=== PATIENT | female | born 1985 | race Caucasian/White ===

== ENCOUNTER 2018-10-17 08:53 | Emergency (ER) | payer OTHER, SELFPAY ==
[2018-10-17 08:59] VITALS: BP 140/78; PULSE 71; RESP 20; TEMP 36.8; O2SAT 100
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
== END 2018-10-17 09:40 | disposition home or self-care (01) ==
LOC: ED 09:47
PROVIDERS: Emergency Provider Emergency Medicine; PCP Family Medicine
DX: S13.4XXA Sprain of ligaments of cervical spine, initial encounter (principal); S06.0X0A Concussion without loss of consciousness, initial encounter; M54.6 Pain in thoracic spine; R51 Headache; R42 Dizziness and giddiness; V43.52XA Car driver injured in collision with other type car in traffic accident, initial encounter
CPT/HCPCS: 81025; 99282

== ENCOUNTER → 2018-10-20 12:40 | Outpatient (CLI) | payer OTHER, SELFPAY ==
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
--- NOTE | 2018-10-20 | DI.RAD.S_ITS ---
PROCEDURE: XR LUMBAR SPINE 2-3V INDICATIONS: BACK PAIN TECHNIQUE: 2 views of the lumbar spine were acquired. COMPARISON: None. FINDINGS: Bones: 5 [id number] vertebrae are present. There is mildly dextroscoliotic bony alignment. No vertebral body compression fractures. No suspicious bony lesions. Soft tissues: Overlying bowel gas pattern is normal. No suspicious soft tissue calcifications. IMPRESSION: No trauma. Mild dextroscoliosis. A definite source of acute onset back pain is not seen. Dictated by: Theo Delacruz M.D. on 10/20/2018 at 14:03 Approved by: Theo Delacruz M.D. on 10/20/2018 at 14:03
== END ==
PROVIDERS: PCP Family Medicine
DX: M54.9 Dorsalgia, unspecified (principal); M51.34 Other intervertebral disc degeneration, thoracic region; M41.9 Scoliosis, unspecified
CPT/HCPCS: 72072; 72100

== ENCOUNTER → 2018-11-05 16:40 | Outpatient (CLI) | payer OTHER, SELFPAY ==
--- NOTE | 2018-11-05 | DI.RAD.S_ITS ---
PROCEDURE: XR LUMBAR SPINE 2-3V INDICATIONS: LOW BACK PAIN TECHNIQUE: 3 views of the lumbar spine were acquired. COMPARISON: [facility], CR, XR LUMBAR SPINE 2-3V, 10/20/2018, 12:58. FINDINGS: Bones: No fracture or focal osseous destruction. Minimal dextrocurvature centered at L3. Multilevel degenerative endplate sclerosis and spurring. Diffuse facet arthropathy. Mild narrowing of the L3-L4, L4-L5 and L5-S1 disc space. There is also diffuse mild lower thoracic disc space narrowing. Soft tissues: Overlying bowel gas pattern is normal. No suspicious soft tissue calcifications. IMPRESSION: No interval change since 10/20/18. No fracture Diffuse lower thoracic and lumbar spondylosis, and facet arthropathy. Mild dextrocurvature Dictated by: Antonio Richard M.D. on 11/06/2018 at 11:13 Approved by: Antonio Richard M.D. on 11/06/2018 at 11:15
== END ==
PROVIDERS: PCP Family Medicine; Visit Provider Physician Assistant Medical
DX: M54.5 Low back pain (principal); M47.816 Spondylosis without myelopathy or radiculopathy, lumbar region; M47.814 Spondylosis without myelopathy or radiculopathy, thoracic region; R42 Dizziness and giddiness; R51 Headache; S06.0X0D Concussion without loss of consciousness, subsequent encounter
CPT/HCPCS: 72100

== ENCOUNTER → 2018-11-07 12:14 | Outpatient (CLI) | payer OTHER, SELFPAY ==
--- NOTE | 2018-11-07 12:20 | DI.CT.S_ITS ---
PROCEDURE: CT HEAD/BRAIN WO CON INDICATIONS: Dizziness and giddiness TECHNIQUE: Noncontrast 4.5 mm thick angled axial sections acquired from the foramen magnum to the vertex, with coronal and sagittal reformats. For radiation dose reduction, the following was used: automated exposure control, adjustment of mA and/or kV according to patient size. COMPARISON: None. FINDINGS: Image quality: Excellent. CSF spaces: Basal cisterns are patent. No extra-axial fluid collections. Ventricles are normal in size and shape. Brain: No midline shift. No intracranial masses or hemorrhage. Tucker-white matter interface is normal. Skull and face: Calvarium and visualized facial bones are intact, without suspicious lesions. Sinuses: Visualized sinuses and mastoids are clear. IMPRESSION: Negative exam as above Dictated by: Antonio Richard M.D. on 11/07/2018 at 12:49 Approved by: Antonio Richard M.D. on 11/07/2018 at 13:03
== END ==
PROVIDERS: PCP Physician Assistant Medical; Visit Provider Physician Assistant Medical
DX: R42 Dizziness and giddiness (principal)
CPT/HCPCS: 70450

== ENCOUNTER → 2019-01-09 07:16 | Outpatient (CLI) | payer OTHER, SELFPAY ==
--- NOTE | 2019-01-09 | DI.MRI.S_ITS ---
PROCEDURE: MR THORACIC SPINE WO CON INDICATIONS: LOW BACK PAIN/NECK PAIN TECHNIQUE: Noncontrast sagittal T1 spine echo and T2 fast spin echo, sagittal STIR, axial T1 and T2 fast spin echo through the thoracic spine. COMPARISON: None. FINDINGS: Image quality: Excellent. Alignment and Curvature: There is normal bony alignment. Bones: Benign com intraosseous hemangiomas noted in the T7, T8, T11, T12 and L1 vertebral bodies. Small Schmorl's nodes noted in the inferior endplate of the T7 vertebral body, inferior endplate of the T8 vertebral body, inferior plate of the T9 vertebral body and inferior endplate of the T12 vertebral body. No acute vertebral body compression fractures. Spinal Cord: Visualized spinal cord is normal in size and signal. Paraspinous Soft Tissues: No paravertebral masses. Miscellaneous: Mild T6-T7, T7-T8, and T8-9 degenerative disc disease. No central stenosis. No neural foraminal narrowing. No neural impingement. IMPRESSION: 1. Mild multilevel degenerative disc disease. 2. No central stenosis. 3. No neural foraminal narrowing 4. No neural impingement. Dictated by: Grace Guillen MD, PhD on 01/09/2019 at 9:15 Approved by: Grace Guillen MD, PhD on 01/09/2019 at 9:22
--- NOTE | 2019-01-09 | DI.MRI.S_ITS ---
PROCEDURE: MR CERVICAL SPINE WO CON INDICATIONS: LOW BACK PAIN/NECK PAIN TECHNIQUE: Noncontrast sagittal T1 spin echo and T2 fast spin echo, sagittal STIR, foraminal oblique sagittal T2 fast spin echo, and axial gradient echo or T2 fast spin echo through the cervical spine. COMPARISON: None. FINDINGS: Image quality: Excellent. Alignment and Curvature: There is normal bony alignment. Bone Marrow: Marrow demonstrates normal overall signal. Spinal Cord: Visualized spinal cord has normal size and signal. No cerebellar tonsillar herniation. Paraspinous Soft Tissues: No paravertebral masses. Prevertebral soft tissues are normal in thickness. C2-C3: Normal appearance. C3-C4: Normal appearance. C4-C5: Slight loss of disc signal. Minimal, diffuse disc bulge. No central stenosis. No neural foraminal narrowing. No neural impingement. C5-C6: Slight loss of disc signal. Minimal, diffuse disc bulge. No central stenosis. No neural foraminal narrowing. No neural impingement. C6-C7: Normal appearance. C7-T1: Normal appearance. IMPRESSION: 1. Mild C4-C5 and C5-C6 degenerative disc disease. 2. No central stenosis. 3. No neural foraminal narrowing. 4. No neural impingement. Dictated by: Grace Guillen MD, PhD on 01/09/2019 at 10:41 Approved by: Grace Guillen MD, PhD on 01/09/2019 at 10:44
--- NOTE | 2019-01-09 | DI.MRI.S_ITS ---
PROCEDURE: MR LUMBAR SPINE WO CON INDICATIONS: LOW BACK PAIN/NECK PAIN TECHNIQUE: Noncontrast sagittal T1 spin echo and T2 fast echo, sagittal STIR, axial T1 and T2 fast spin echo through the lumbar spine. In cases with scoliosis, additional coronal T2 fast spin echo may be performed. COMPARISON: [facility], CR, XR LUMBAR SPINE 2-3V, 11/05/2018, 16:53. FINDINGS: Image quality: Excellent. Alignment and Curvature: There are 5 lumbar-type vertebral bodies by plain film. A lamina is normal. Bone Marrow: Marrow is of normal overall signal. No acute vertebral body compression fractures. Spinal Cord: Conus medullaris terminates at the lower L1 level. Visualized cord demonstrates normal signal and size. Paraspinous Soft Tissues: No paravertebral masses. L1-L2: Mild diffuse disc bulge. Mild facet and ligament flavum hypertrophy. Mild canal stenosis. No foraminal stenosis. L2-L3: Mild disc desiccation. Minimal diffuse disc bulge. Mild facet and ligamentum flavum hypertrophy. Mild epidural lipomatosis. Minimal canal stenosis. No foraminal stenosis. L3-L4: Mild disc height loss and desiccation. Mild diffuse disc bulge with superimposed small central protrusion and annular tear. Mild facet and ligament flavum hypertrophy. Mild canal stenosis. Mild bilateral foraminal stenosis. L4-L5: Mild disc height loss and desiccation. Mild diffuse disc bulge with superimposed small central protrusion and annular tear. Mild facet and ligament flavum hypertrophy. Mild canal stenosis. No foraminal stenosis. L5-S1: Mild facet hypertrophy bilaterally. No significant canal, nor foraminal stenosis. IMPRESSION: 1. Multilevel degenerative disc and facet disease, as well as ligamentum flavum hypertrophy and epidural lipomatosis. 2. Mild multilevel canal and foraminal stenoses. No neural impingement. Dictated by: Barbara Whitaker M.D. on 01/09/2019 at 15:54 Approved by: Barbara Whitaker M.D. on 01/09/2019 at 16:00
== END ==
PROVIDERS: PCP Physician Assistant Medical; Visit Provider Physician Assistant Medical
DX: M54.5 Low back pain (principal); M50.321 Other cervical disc degeneration at C4-C5 level; M50.322 Other cervical disc degeneration at C5-C6 level; M46.06 Spinal enthesopathy, lumbar region; M48.061 Spinal stenosis, lumbar region without neurogenic claudication; M48.07 Spinal stenosis, lumbosacral region; D17.79 Benign lipomatous neoplasm of other sites; M51.36 Other intervertebral disc degeneration, lumbar region; M51.34 Other intervertebral disc degeneration, thoracic region
CPT/HCPCS: 72141; 72146; 72148

== ENCOUNTER → 2019-09-26 12:25 | Outpatient (CLI) | payer OTHER, SELFPAY ==
[2019-09-26 13:45] LABS: Influenza A - CEPHEID Flu A NEGATIVE (NEGATIVE); Influenza B - CEPHEID Flu B NEGATIVE (NEGATIVE)
[2019-10-01 08:35] LABS: COVID19 Sendout Not Detected (Not Detected)
== END ==
PROVIDERS: PCP Physician Assistant Medical; Visit Provider Nurse Practitioner
DX: R68.89 Other general symptoms and signs (principal)
CPT/HCPCS: 87502; 87635

== ENCOUNTER → 2019-10-06 10:51 | Outpatient (CLI) | payer OTHER, SELFPAY ==
--- NOTE | 2019-10-06 10:54 | DI.RAD.S_ITS ---
PROCEDURE: XR CHEST 2V INDICATIONS: cough post doxy, cv/flu test negative, r/o pneumonia TECHNIQUE: 2 views of the chest were acquired. COMPARISON: None. FINDINGS: Surgical changes and devices: None. Lungs and pleura: There is mild patchy left perihilar opacity, technically indeterminate. Elsewhere no acute consolidation No pleural effusions or pneumothorax. Mediastinum: Mediastinal contours are normal. Heart size is normal. Bones and chest wall: No suspicious bony abnormalities. Soft tissues appear unremarkable. IMPRESSION: Questionable patchy left perihilar opacity, technically non-specific. This could reflect vascular shadows, aspiration/atelectasis versus early pneumonia. If there is persistent clinical diagnostic uncertainty, continued surveillance with short interval chest radiographs after treatment is recommended. Dictated by: Anotnio Richard M.D. on 10/06/2019 at 11:06 Approved by: Antonio Richard M.D. on 10/06/2019 at 11:11
== END ==
PROVIDERS: PCP Physician Assistant Medical; Referring Provider Physician Assistant; Visit Provider Physician Assistant
DX: J06.9 Acute upper respiratory infection, unspecified (principal); R05 Cough
CPT/HCPCS: 71046

== ENCOUNTER → 2021-01-26 09:40 | Outpatient (CLI) | payer OTHER, SELFPAY ==
[2021-01-26 10:45] LABS: Add Manual Diff / Slide Review NO; Basophils Absolute Auto 0 /uL (0-100); Basophils Percent Auto 0.7 % (0-2); Eosinophils Absolute Auto 100 /uL (0-450); Eosinophils Percent Auto 1.4 % (2-4); Hematocrit 41.1 % (36-46); Hemoglobin 13.9 g/dL (12.0-16.0); Lymphocytes Absolute Auto 1800 /uL (1100-4500); Lymphocytes Percent Auto 28.1 % (25-40); Mean Corpuscular HGB Conc 33.9 % (30-36); Mean Corpuscular Hemoglobin 31.7 PG (26-34); Mean Corpuscular Volume 93.4 fL (80-100); Monocytes Absolute Auto 500 /uL (0-900); Monocytes Percent Auto 8.4 % (3-14); Neutrophils Absolute Auto 3900 /uL (1500-7000); Neutrophils Percent Auto 61.4 % (50-75); Platelet Count 250 X10^3/uL (150-400); Red Cell Distribution Width 12.8 % (11.6-14.8); White Blood Cell Count 6.4 X10^3/uL (4.5-11.0)
[2021-01-26 10:54] LABS: Alanine Aminotransferase 20 IU/L (<35); Albumin 4.8 g/dL (3.5-5.0); Albumin Globulin Ratio 1.6 (1.0-2.8); Alkaline Phosphatase 31 U/L (38-126); Aspartate Aminotransferase 25 IU/L (14-36); BUN Creatinine Ratio 27.8 (6-22); Bilirubin Total 0.4 mg/dL (0.2-1.3); Blood Urea Nitrogen 20 mg/dL (7-17); Calcium 9.9 mg/dL (8.4-10.2); Carbon Dioxide 28 mmol/L (22-32); Chloride 105 mmol/L (98-107); Cholesterol 191 mg/dL (140-199); Estimated Glomerular Filt Rate > 60.0 mL/min (>60); Glucose 92 mg/dL (70-100); HDL Cholesterol 67 mg/dL (40-60); HEMOLYSIS < 15 (0-50); LDL Cholesterol Calculated 109 mg/dL (<100); Potassium 4.9 mmol/L (3.4-5.1); Sodium 140 mmol/L (137-145); Total Protein 7.8 g/dL (6.3-8.2); Triglycerides 75 mg/dL (35-150)
[2021-01-26 11:43] LABS: TSH w/ Reflex to FT4 1.66 uIU/mL (0.47-4.68)
== END ==
PROVIDERS: PCP Family Medicine; Referring Provider Family Medicine; Visit Provider Family Medicine
DX: D64.9 Anemia, unspecified (principal); Z13.220 Encounter for screening for lipoid disorders; Z13.29 Encounter for screening for other suspected endocrine disorder
CPT/HCPCS: 36415; 80053; 80061; 84443; 85025

== ENCOUNTER → 2021-02-08 10:38 | Outpatient (CLI) | payer OTHER, MEDICAID, SELFPAY ==
--- NOTE | 2021-02-08 10:44 | DI.US.S_ITS ---
PROCEDURE: US ABDOMEN LIMITED INDICATIONS: UMBILICAL HERNIA TECHNIQUE: Real-time focused scanning was performed of the abdomen, with image documentation. COMPARISON: None. FINDINGS: No hernia found. IMPRESSION: No hernia found. Dictated by: Theo Delacruz M.D. on 02/08/2021 at 11:51 Approved by: Theo Delacruz M.D. on 02/08/2021 at 11:51
== END ==
PROVIDERS: PCP Family Medicine; Referring Provider Family Medicine; Visit Provider Family Medicine
DX: K42.9 Umbilical hernia without obstruction or gangrene (principal)
CPT/HCPCS: 76705

== ENCOUNTER → 2021-02-14 13:00 | Outpatient (CLI) | payer OTHER, MEDICAID, SELFPAY ==
--- NOTE | 2021-02-14 13:00 | DI.US.S_ITS ---
PROCEDURE: US PELVIC COMPLETE INDICATIONS: Ovarian cysts, pelvic pain TECHNIQUE: Real-time scanning was performed of the pelvic organs, with image documentation. Additional endovaginal scanning was necessary due to incomplete visualization of the adnexal and endometrial structures by transabdominal scanning. COMPARISON: [facility], US, PELVIC COMPLETE, 08/05/2017, 16:28. FINDINGS: Uterus: Uterus is normal in size at 10.2 x 5.4 x 5.3 cm. The endometrium measures 14 mm in combined thickness. There is a left anterior intramural fibroid seen that measures up to 3.3 cm. Ovaries: The right ovary is not seen. The left ovary measures 5.4 x 3.7 x 5 cm and demonstrates a complex hypoechoic cyst that measures 3.4 x 2.2 x 2.5 cm. There is also a 2.9 cm simple cyst seen within the left ovary, which is considered to be within physiologic limits. No adnexal masses are seen on either side. Other: No pathologic free abdominal or pelvic fluid. IMPRESSION: There is a 3.4 cm complex cyst seen within the left ovary, which most likely relates to a hemorrhagic cyst in a patient of this age. If it would be clinically appropriate, a followup pelvic ultrasound could be considered in 6 weeks to assure resolution/ improvement. 3.3 cm anterior fibroid seen. Dictated by: Yoan Beltre M.D. on 02/14/2021 at 12:54 Approved by: Yoan Beltre M.D. on 02/14/2021 at 12:56
== END ==
PROVIDERS: PCP Family Medicine; Referring Provider Obstetrics & Gynecology; Visit Provider Obstetrics & Gynecology
DX: R10.2 Pelvic and perineal pain (principal); N83.292 Other ovarian cyst, left side; D25.1 Intramural leiomyoma of uterus
CPT/HCPCS: 76830; 76856

== ENCOUNTER → 2021-03-16 11:26 | Outpatient (CLI) | payer OTHER, MEDICAID, SELFPAY ==
[2021-03-16 13:09] LABS: COVID19 -Nasal RAPID Negative (Negative)
== END ==
PROVIDERS: PCP Family Medicine; Visit Provider Obstetrics & Gynecology
DX: Z01.812 Encounter for preprocedural laboratory examination (principal); Z20.822 Contact with and (suspected) exposure to COVID-19
CPT/HCPCS: 87635

== ENCOUNTER 2021-03-17 07:51 | Day surgery (SDC) | payer OTHER, MEDICAID, SELFPAY ==
[2021-03-16 10:12] VITALS: BMI 33.3
[2021-03-17] VITALS (10 sets, daily range): BP systolic 101–125; BP diastolic 61–79; PULSE 57–80; RESP 12–19; TEMP 35.9–36.9; O2SAT 87–100; BMI 33.3
--- NOTE | 2021-03-17 | PATH_ITS ---
[facility] Accession Number: [id number] . 01 Material submitted: . peritoneum - PERITONEAL BIOPSY . 01 Clinical history: . A: ENDOMETRIOSIS . 02 Diagnosis: Peritoneum, Biopsy: Fibroadipose tissue with small focus of CD10 immunoreactive stroma, consistent with endometriosis. No evidence of malignancy. [facility] 03/22/2021 1215 Local . 02 Electronically signed: . Sai Aponte MD, PhD, Pathologist NPI- [id number] . 01 Gross description: . The specimen is received in formalin, labeled peritoneal biopsy endometriosis, and consists of a 0.5 x 0.4 x 0.3 cm amato fragment of soft tissue which is entirely submitted in cassette A1. ([id number]) /[facility] 03/18/2021 1542 Local . 02 Microscopic: . Sections are of fibroadipose tissue with a small focus of dense stroma. To further evaluate the focus of interest, a limited panel of immunohistochemical stains is performed (each with an appropriately positive control). The focus of interest shows strong diffuse CD10 immunoreactivity. There is no evidence of PAX8 immunoreactivity; that said, there is no definitive epithelial component present for evaluation. The overall morphology and immunoprofile are consistent with the clinical impression of endometriosis. . * This test was developed and its performance characteristics determined by [facility]. It has not been cleared or approved by the U.S. Food and Drug Administration. The FDA has determined that such clearance or approval is not necessary. This test is used for clinical purposes. It should not be regarded as investigational or for research. . 02 Pathologist provided ICD-10: R10.31, N80.9 . 02 CPT . 544865, B97497, E21119 Performed at: 01 [facility] [address] [place] [address], [place], [place] [id number] MD Polo Salcido MD Phone: [phone] Performed at: 02 [facility] [id number] [place] [id number] MD Caryn Tripp MD Phone: [phone]
--- NOTE | 2021-03-17 07:51 | PM.GYNHP.1 ---
History of Present Illness History of Present Illness Reason for admission: other (Left ovarian mass) Narrative: Rica is a 35 yo LMP 02/24/2021 presented for evaluation due to a history of right lower quadrant pain since September 2020 and the finding of a complex left ovarian cyst. Comparing US results from [facility] from 10/2020, with ultrasound results from diagnostic imaging 02/14/2021, it shows that the left ovary has enlarged slightly to 5.4 x 3.7 x 5 cm and that there is a complex hypoechoic cyst that measures 3.4 x 2.2 x 2.5. the patient gives a history in the past of being told that she has a dermoid in the left ovary but never has had surgery for same.? The patient had her right ovary removed in 2009 but no records are? available for review.? That said, the patient is very concerned about the possibility of losing her remaining left ovary and if she has lesion within that ovary that may grow over time and consequently put her left ovary in jeopardy insofar as viability, she wishes to proceed sooner rather than later with corrective surgery.? ? After consideration of all options, the patient has decided to proceed with left ovarian cystectomy which is scheduled for 03/17/2021.? She presents today for herscheduled surgery. [facility] Medical History Complex cyst of left ovary Fibromyalgia RLQ abdominal pain Surgical History Hx of abdominoplasty Hx of breast augmentation Hx of removal of ovary Social History Smoking Status: Former smoker alcohol intake: current Meds Home Medications and Allergies Home Medications Medication Instructions Recorded Confirmed Type cyclobenzaprine 5 mg tablet 5 mg PO BEDTIME PRN #30 tab 01/26/21 03/16/21 Rx meloxicam 7.5 mg tablet 7.5 mg PO DAILY 01/26/21 03/16/21 History ibuprofen 600 mg tablet 600 mg PO Q6HP PRN 03/16/21 03/16/21 History Allergies Allergy/AdvReac Type Severity Reaction Status Date / Time No Known Drug Allergies Allergy Verified 03/16/21 11:38 Review of Systems Review of Systems Narrative: Problem-specific ROS positives are included in HPI Exam Const General: cooperative Nutritional Appearance: overweight Orientation: alert and oriented x3 HENMT Head: normal to inspection Ears: hearing grossly normal bilaterally Nose: external nose normal Face and sinus: face symmetric Eyes Conjunctivae: conjunctivae normal Sclera: sclerae normal EOM: EOM intact bilaterally Neck Neck: full ROM and No lymphadenopathy Thyroid: thyroid normal Resp Effort & Inspection: normal respiratory effort and able to speak in complete sentences Auscultation: clear to auscultation bilaterally Cardio Rate: regular rate Rhythm: regular rhythm Heart Sounds: S1 normal and S2 normal GI Inspection: normal to inspection and scar ( Pfannenstiel, abdominoplasty) Palpation: soft, hepatomegaly and No mass External Female Exam: normal external appearance Speculum Exam - Vagina: normal appearance of the vagina and normal vaginal discharge Speculum Exam - Cervix: normal appearance of the cervix and cervical os open Bimanual Exam- Vagina & Uterus: uterine size normal and not fixed (Anterior) Bimanual Exam- Adnexa, other: tender on the left and apex supported OB/External & Speculum: cervical os open Extrem General: normal to inspection and No calf tenderness Psych Appearance: grossly normal Mental Status: mental status grossly normal Speech and Movement: speech and movement normal Mood: congruent mood Affect: normal affect Attitude: cooperative Thought Process: normal Thought Content: normal Judgment: judgment good Assessment & Plan Assessment and plan (1) Complex cyst of left ovary: Status: Acute Assessment & Plan narrative: Patient counseled regarding options, alternatives, risks, and potential benefits associated with laparoscopic ovarian cystectomy.? Patient is also aware that despite our best efforts removal of the left ovary may be necessary to control hemorrhage or if unexpected findings are noted.? She understands that this would result in her been experiencing surgical menopause for which hormone replacement? therapy would be indicated.? Due to the known intra-abdominal scar tissue which the patient has following her 3 sections, she also understands that an open laparotomy may be necessary to effectively remove the ovarian cyst.? With full understanding of the above a written consent was completed, executed, and signed 03/16/2021.. COVID-19 COVID-19 status: Negative Result date/Date tested (Pos, Neg/Pending): 03/16/21 Time Spent With Patient Time with patient: less than 30 minutes Critical Care time: I spent a total of [] minutes of critical care time on this patient's care today; this time is exclusive of procedural time.
[2021-03-17] MEDS: LACTATED RINGERS 1,000 ML 42 ML IV ×2 (08:13→10:01)
[2021-03-17] MEDS: SCOPOLAMINE 1 PATCH TOP (08:56)
--- NOTE | 2021-03-17 09:23 | PM.PREOP ---
Pre-operative Note COVID-19 COVID-19 status: Negative Result date/Date tested (Pos, Neg/Pending): 03/16/21 Interval Note History & Physical reviewed/Exam performed by Physician: Yes Changes to H&P: No
[2021-03-17] MEDS: ACETAMINOPHEN IV 1,000 MG/100 ML VIAL 400 MG IV (09:30)
--- NOTE | 2021-03-17 09:49 | SUR.OPER ---
Lithotomy on padded OR bed, head on pillow, bilateral arms padded with gel pads and tucked at sides. Legs secured in padded yellow fins stirrups.
[2021-03-17] MEDS: BUPIVACAINE 0.5% (PF) VIAL 30 ML INJ (09:59)
--- NOTE | 2021-03-17 11:00 | PM.OP.1 ---
Operative Date/Time/Diagnoses Date of procedure: 03/17/21 Time of procedure: 09:45 Pre-op diagnosis: Pelvic pain, left ovarian mass Post-op diagnosis: other (Left ovarian endometrioma, pelvic peritoneal endometriosis, pelvic adhesions) Procedure & Clinicians Procedure: Laparoscopic left ovarian cystectomy Lysis of adhesion Excision of pelvic peritoneal endometriosis Same procedure as scheduled: Yes Indications: Rica is a 35 yo LMP 02/24/2021 presented for evaluation due to a history of right lower quadrant pain since September 2020 and the finding of a complex left ovarian cyst. Comparing US results from [facility] from 10/2020, with ultrasound results from diagnostic imaging 02/14/2021, it shows that the left ovary has enlarged slightly to 5.4 x 3.7 x 5 cm and that there is a complex hypoechoic cyst that measures 3.4 x 2.2 x 2.5. the patient gives a history in the past of being told that she has a dermoid in the left ovary but never has had surgery for same.? The patient had her right ovary removed in 2009 but no records are? available for review.? That said, the patient is very concerned about the possibility of losing her remaining left ovary and if she has lesion within that ovary that may grow over time and consequently put her left ovary in jeopardy insofar as viability, she wishes to proceed sooner rather than later with corrective surgery.? ? After consideration of all options, the patient has decided to proceed with left ovarian cystectomy which is scheduled for 03/17/2021.? She presents today for preop evaluation, assessment, and consent. Surgeon: Rd Rubio Electrical Control Assembler: Grecia Wynne Click Yes if Unassisted: No Anesthesia Type: General Operative Notes Findings: The pelvis and upper abdomen were visualized thoroughly via laparoscopy. the anterior cul-de-sac demonstrates changes consistent with prior sections. In addition there are a number of superficial peritoneal implants of endometriosis in the anterior cul-de-sac. Similarly, the posterior cul-de-sac peritoneum had diffuse implants of superficial peritoneal endometriosis. The right adnexa is surgically absent. There is some scarring at the site of the LSO but no obvious cause of the right lower quadrant pain of which she complains. The appendix was visualized and appears normal as does the upper abdomen. The uterus is upper limits of normal size with a 3 cm subserosal myoma arising from the right anterolateral aspect of the fundus and extending to the pelvic sidewall. The left ovary has superficial endometriosis on the surface which was fulgurated and a 2.5 cm endometrioma within the substance of the ovary which was opened, drained, and the base of the endometrioma was fulgurated in its entirety. There was also a deep implant lateral and cephalad to the infundibulopelvic ligament on the left and that implant was excised and submitted for pathologic evaluation. The upper abdomen was unremarkable to laparoscopic visualization. Closure Type: primary Specimen(s): other ( Peritoneal biopsy, left pelvic sidewall) Estimated Blood Loss (mL): 5 Blood products transfused: none Procedure in detail: With the patient under satisfactory general endotracheal anesthesia in the modified dorsolithotomy position, the pelvis vagina and abdomen were prepped and draped in the usual fashion for laparoscopy. A pre-surgical safety time-out was then taken per [facility] Main OR protocol. The umbilicus was infiltrated with 0.5% Marcaine and a 3 cm vertical umbilical incision was made. The subcutaneous tissues were and the anterior fascia grasped with 2 Heidi clamps. The anterior fascia was then incised transversely with Metzenbaum scissors and the ends of the incision were secured with 0 Vicryl interrupted stitch. Dissection was then carried down through the rectus abdomini to the anterior peritoneum which was entered sharply without incident. The Pereira cannula was then placed and retaining balloon inflated. The stay sutures on the fascia were then used to secure the Pereira cannula in place. The abdomen was insufflated with carbon dioxide and visualized with the 5 mm scope. Two additional 5 mm ports were then placed in the right hand left mid quadrants after infiltration of the skin and subcutaneous tissues with 0.5% Marcaine. The pelvis and abdomen were visualized with the findings as noted above. The single pelvic adhesion from the omentum to the anterior abdominal wall was coagulated and divided with monopolar wero. At that point the pelvis was more fully visualized and the left ovary was mobilized so as to be fully visualized. There was some surface endometriosis which was coagulated using monopolar current and to functional cysts were incised and drained yielding clear fluid. On the under surface of the ovary however there was approximately 2-3 cm endometrioma within the substance of the ovary which was incised and the overlying invasive endometriosis of the capsule was excised so as to expose the cavity of the endometrioma. Attempts to remove the capsule of the endometrioma were were unsuccessful and therefore monopolar current was used to fulgurate the entire capsule of the endometrioma. The cavity of the endometrioma was then lavaged and inspected for bleeding or residual endometriosis and there was none evident. The area of endometriosis lateral to the infundibulopelvic ligament on the left was excised by grasping the implant, elevating it, and using monopolar wero excising it at the base. It was submitted as a separate pathologic specimen. The pelvis was then inspected more thoroughly and completely irrigated. Aside from the diffuse superficial endometriotic implants and the fibroid arising on the right lateral aspect of the uterus there were no other abnormalities noted. At that point the pneumoperitoneum was vented and the ports removed. The fascia of the umbilical incision was then closed with 0 Vicryl interrupted stitch x4 and the skin edges were brought together with 4-0 Monocryl using inverted interrupted stitches. The 2 5 mm ports on the left and the right were then closed with 4-0 Monocryl subcuticular stitches and skin glue was applied to all incisions. A compression dressing was then applied to the umbilical incision and sterile dressings were applied to the other 2 port incisions. The patient was then transferred to the PACU for a period of recovery after having tolerated procedure well. Complications: none Post-operative Condition: stable Disposition: PACU Plan for aftercare: Routine postop care with follow-up appointment scheduled for 2 weeks. Electronic prescriptions for Dilaudid 2 mg # 20 and Zofran 4 mg #20 were sent to her pharmacy.
[2021-03-17] MEDS: HYDROMORPHONE 2 MG INJ IV ×2 (11:17→11:25)
[2021-03-17] MEDS: hydrOXYzine 50 MG/ML INJ 25 MG IM (11:29)
[2021-03-17] MEDS: METOCLOPRAMIDE 10 MG/2 ML INJ IV (11:45)
== END 2021-03-17 13:22 | disposition home or self-care (01) ==
PROVIDERS: PCP Family Medicine; Referring Provider Obstetrics & Gynecology; Visit Provider Obstetrics & Gynecology
PROC: (CPT 58661; principal; 2021-03-17 09:15)
DX: N80.1 Endometriosis of ovary (principal); M79.7 Fibromyalgia; N80.3 Endometriosis of pelvic peritoneum; N73.6 Female pelvic peritoneal adhesions (postinfective); D25.2 Subserosal leiomyoma of uterus
CPT/HCPCS: 58662; 81025; J0131; J1100; J1170; J1885; J2250; J2405; J2704; J2765; J3010; J3410

== ENCOUNTER → 2021-04-21 10:28 | Outpatient (CLI) | payer OTHER, MEDICAID, SELFPAY ==
[2021-04-21 12:59] LABS: COVID19 -Nasal RAPID POSITIVE (Negative)
== END ==
PROVIDERS: PCP Family Medicine; Visit Provider Nurse Practitioner
DX: U07.1 COVID-19 (principal)
CPT/HCPCS: 87635

== ENCOUNTER 2021-04-27 11:58 | Emergency (ER) | payer OTHER, MEDICAID, SELFPAY ==
[2021-04-27 12:00] VITALS: BP 132/80; PULSE 81; RESP 14; TEMP 36.7; O2SAT 99; BMI 34.0
--- NOTE | 2021-04-27 12:08 | DI.RAD.S_ITS ---
PROCEDURE: XR CHEST 1V INDICATIONS: chest pain TECHNIQUE: One view of the chest was acquired. COMPARISON: [facility], CR, XR CHEST 2V, 10/06/2019, 10:49. FINDINGS: Surgical changes and devices: None. Lungs and pleura: Prominent vessel or small pulmonary nodule in the left suprahilar region is unchanged compared to September 2019. No pleural effusions or pneumothorax. Mediastinum: Mediastinal contours appear unchanged. Heart size is within normal limits. Bones and chest wall: No suspicious bony lesions. Overlying soft tissues appear unremarkable. IMPRESSION: No acute cardiopulmonary abnormality. Prominent vessel or small pulmonary nodule in the left suprahilar region is unchanged compared to September 2019. Dictated by: Eamon Renteria M.D. on 04/27/2021 at 12:44 Approved by: Eamon Renteria M.D. on 04/27/2021 at 12:46
[2021-04-27 12:53] VITALS: BP 110/67; PULSE 70; RESP 16; O2SAT 96
--- NOTE | 2021-04-27 20:44 | ED.SOB ---
HPI - SOB/Dyspnea <LUCIA Barth - Last Filed: 04/27/21 20:54> General Chief Complaint: Shortness of Breath/Dyspnea Stated Complaint: COVID+, chest pain, trouble breathing Time Seen by Provider: 04/27/21 12:13 Source: patient Mode of arrival: Ambulatory Limitations: no limitations History of Present Illness HPI Narrative: 35-year-old female presents to the emergency department today for pain with deep inspiration related to her COVID positive diagnosis. She states that she was positive for COVID on 04/17/2021, her significant other is also positive at home for the last 4 days, she reports that her biggest complaint is fatigue and pain with deep inspiration. She reports that this is reproducible when she does take a deep breath, she denies any abdominal pain, chest pain, shortness of breath, nausea or vomiting, recent fever, dysuria, or other symptom. She denies any history of asthma, she is a nonsmoker. She states that she still does have a cough, it is nonproductive. Related Data Home Medications Medication Instructions Recorded Confirmed meloxicam 7.5 mg tablet 7.5 mg PO DAILY 01/26/21 03/30/21 ibuprofen 600 mg tablet 600 mg PO Q6HP PRN 03/16/21 03/30/21 Previous Rx's Medication Instructions Recorded cyclobenzaprine 5 mg tablet 5 mg PO BEDTIME PRN #30 tab 01/26/21 hydromorphone 2 mg tablet 2 mg PO Q4-6H PRN #20 tab 03/17/21 ondansetron HCl 4 mg tablet 4 mg PO Q6H #20 tab 03/17/21 (Zofran) acetaminophen 300 mg-codeine 30 mg 1 tab PO BEDTIME PRN #7 tab 04/27/21 tablet benzonatate 100 mg capsule 100 mg PO BID PRN #14 cap 04/27/21 (Tessalbilly Arias) Allergies Allergy/AdvReac Type Severity Reaction Status Date / Time No Known Drug Allergies Allergy Verified 04/27/21 12:06 Review of Systems <LUCIA Barth - Last Filed: 04/27/21 20:54> Review of Systems Narrative: General: denies fever, chills Head/Neck: denies headache, neck pain Eyes: denies visual changes, eye pain Cardio: denies chest pain, palpitations Respiratory: denies shortness of breath, positive for nonproductive cough GI: denies abdominal pain, nausea, vomiting, or diarrhea : denies dysuria, hematuria MSK: denies joint pain, muscle weakness Skin: denies rash, itching Neuro: denies numbness, tingling Patient History <LUCIA Barth - Last Filed: 04/27/21 20:54> Medical History Complex cyst of left ovary Fibromyalgia RLQ abdominal pain Surgical History Hx of abdominoplasty Hx of breast augmentation Hx of removal of ovary Social History household members: children Smoking Status: Former smoker alcohol intake: current Smoking Status: Former smoker alcohol intake frequency: a few times a month Substance Use Type: does not use Exam <LUCIA Barth - Last Filed: 04/27/21 20:54> Narrative Exam Narrative: Independently reviewed vitals signs and nursing notes. General: Awake, alert, nontoxic appearing no cardiorespiratory distress Head/Neck: Atraumatic, neck full range of motion Eyes: EOMI, conjunctiva normal Nose: nares patent, no rhinorrhea Mouth/Throat: moist mucus membranes, posterior pharynx normal, no oral lesions Cardio: Regular rate and rhythm, no peripheral edema Respiratory: respirations unlabored without wheezing, stridor, or rales. No retractions. Pain with deep inspiration is reproducible. Patient without hypoxia, breath sounds are clear throughout all lung whitley. GI: Abdomen soft, nontender MSK: Moves all extremities, neurovascularly intact Skin: Normal capillary refill, no rash Neuro: Normal speech and cognition, normal gait Initial Vital Signs Initial Vital Signs: Vital Signs Temperature 98.0 F 04/27/21 12:00 Pulse Rate 81 04/27/21 12:00 Respiratory Rate 14 04/27/21 12:00 Blood Pressure 132/80 04/27/21 12:00 Pulse Oximetry 99 04/27/21 12:00 <Yolanda Rai MD - Last Filed: 04/28/21 07:39> Initial Vital Signs Initial Vital Signs: Vital Signs Temperature 98.0 F 04/27/21 12:00 Pulse Rate 81 04/27/21 12:00 Respiratory Rate 14 04/27/21 12:00 Blood Pressure 132/80 04/27/21 12:00 Pulse Oximetry 99 04/27/21 12:00 Course <LUCIA Barth - Last Filed: 04/27/21 20:54> Orders Ordered: ED Orders 04/27/21 12:08 XR chest 1V Stat EKG-12 Lead Stat Vital Signs Vital signs: Vital Signs - 8 hr 04/27/21 12:53 Pulse Rate 70 Respiratory Rate 16 Blood Pressure 110/67 Pulse Oximetry 96 <Yolanda Rai MD - Last Filed: 04/28/21 07:39> Orders Ordered: ED Orders 04/27/21 12:08 XR chest 1V Stat EKG-12 Lead Stat Vital Signs Vital signs: Vital Signs - 8 hr 04/27/21 12:53 Pulse Rate 70 Respiratory Rate 16 Blood Pressure 110/67 Pulse Oximetry 96 MDM - SOB/Dyspnea <LUCIA Barth - Last Filed: 04/27/21 20:54> Imaging Data Chest x-ray: Radiologist's Impression: PROCEDURE:? XR CHEST 1V ? INDICATIONS:? chest pain ? TECHNIQUE:? One view of the chest was acquired.? ? COMPARISON:? [facility], , XR CHEST 2V, 10/06/2019, 10:49. ? FINDINGS:? ? Surgical changes and devices:? None.? ? Lungs and pleura:? Prominent vessel or small pulmonary nodule in the left suprahilar region is unchanged compared to September 2019. No pleural effusions or pneumothorax.? ? Mediastinum:? Mediastinal contours appear unchanged.? Heart size is within normal limits. ? ? Bones and chest wall:? No suspicious bony lesions.? Overlying soft tissues appear unremarkable.? ? IMPRESSION:? No acute cardiopulmonary abnormality. ? Prominent vessel or small pulmonary nodule in the left suprahilar region is unchanged compared to September 2019. ? ? Dictated by: Eamon Renteria M.D. on 04/27/2021 at 12:44 ? ? Approved by: Eamon Renteria M.D. on 04/27/2021 at 12:46 ? MDM Narrative Medical decision making narrative: 35-year-old female who tested positive for COVID on 04/21/2021 presents to the emergency department today for continued symptoms which include nonproductive cough, fatigue, and pain with deep inspiration. She is nontoxic appearing, without hypoxia, breath sounds are clear throughout without any accessory muscle use. Chest x-ray was negative infiltrates, pleural effusions, or pneumothorax. Impression is without any cardiopulmonary abnormality. She most likely has a prolonged course, treatment is supportive, she is outside of the window for monoclonal antibodies. Her 12 lead showed normal sinus rhythm without ST changes. Most recent lab work on 04/21/2021 was positive for COVID. She was prescribed Tessalon Perles, and Tylenol 3 to help with her cough. She is encouraged to hydrate, use ibuprofen and these other medications to be more comfortable. Differential includes bronchitis, prolonged course of COVID 19, low suspicion for coagulopathy including DVT or PE as there are no signs and symptoms of this. Patient is appropriate and amenable to discharge home. Vital signs are stable on repeat examination is unremarkable. Patient has been informed of results. Patient has been given strict return to ER precautions for any new or worsening symptoms. Patient understands to follow up closely with outpatient providers as instructed. Patient understands plan and agrees to discharge home. All questions and concerns answered at this time. Discharge Plan Departure Patient Disposition: Home Clinical Impression: COVID-19 Fatigue Qualifiers: Fatigue type: unspecified Qualified Code(s): R53.83 - Other fatigue Instructions: DI for COVID-19 (Suspected or Confirmed ) Activity Restrictions/Additional Instructions: *You have been diagnosed with an extended course of COVID-19. Your exam and tests are reassuring that you are on the upswing of this virus. Because your partner is currently ill with COVID, you both have 10 days from the onset of the most recent person's symptoms before everybody can go back to school and work. But, it is only a few more days, you both will get better together. Please try the honey in your tea for your cough, as well as the Tessalon Perles to see if those are helpful, you can take does during the daytime without drowsiness. Take the Tylenol with codeine only at nighttime to help yourself sleep. *What to do: *Please continue to take your regular medications as directed. [x ] New medication prescriptions sent to your pharmacy: [[facility]] [ ] New medication written as a paper prescription [ ] No new medications given *Please follow up with your primary care provider in 2-3 days, call for an appointment. Let them know you were seen in the Emergency Department and that we ask that you be seen in follow up. We will electronically transmit a record of today's note if your PCP is in our system *If you do not have a primary care provider please contact the [facility] Resource line at [phone]. They will ask some questions about your medical history and help get you set up with a doctor in the community. *Return to Emergency Department if you should have any new, worsening or concerning symptoms, such as [fever greater than 101F, chills, worsening pain, persistent vomiting or other bothersome symptoms] Prescriptions: New benzonatate [Tessalon Perles] 100 mg capsule 100 mg PO BID PRN (Reason: cough) Qty: 14 RF: 0 acetaminophen-codeine 300-30 mg tablet 1 tab PO BEDTIME PRN (Reason: pain) Qty: 7 RF: 0 No Action meloxicam 7.5 mg tablet 7.5 mg PO DAILY RF: 0 cyclobenzaprine 5 mg tablet 5 mg PO BEDTIME PRN (Reason: muscle spasm) Qty: 30 RF: 0 ibuprofen 600 MG tablet 600 mg PO Q6HP PRN (Reason: Pain) RF: 0 hydromorphone 2 mg tablet 2 mg PO Q4-6H PRN (Reason: pain) Qty: 20 RF: 0 ondansetron HCl [Zofran] 4 mg tablet 4 mg PO Q6H Qty: 20 RF: 0 Referrals: Jim Clement MD [Primary Care Provider] - <Yolanda Rai MD - Last Filed: 04/28/21 07:39> Cosign ED Attending Cosignature Attestation: I was immediately available in the department for consultation throughout this patient's visit. I agree with documentation as above. Yolanda Rai MD
== END 2021-04-27 12:54 | disposition home or self-care (01) ==
PROVIDERS: Emergency Provider Nurse Practitioner Critical Care Medicine; PCP Family Medicine
DX: U07.1 COVID-19 (principal); R53.83 Other fatigue; R07.9 Chest pain, unspecified
CPT/HCPCS: 71045; 93005; 93010; 99283; 99284

== ENCOUNTER → 2021-11-07 14:17 | Outpatient (CLI) | payer OTHER, MEDICAID, SELFPAY | PROVIDERS: PCP Family Medicine; Referring Provider Obstetrics & Gynecology; Visit Provider Obstetrics & Gynecology | DX: O20.0 Threatened abortion (principal) | CPT/HCPCS: 36415; 84702 ==

== ENCOUNTER → 2021-11-09 10:23 | Outpatient (CLI) | payer OTHER, MEDICAID, SELFPAY ==
[2021-11-09 11:54] LABS: HCG Quantitative /Beta subunit 6243.4 mIU/mL
== END ==
PROVIDERS: PCP Family Medicine; Referring Provider Obstetrics & Gynecology; Visit Provider Obstetrics & Gynecology
DX: O20.9 Hemorrhage in early pregnancy, unspecified (principal)
CPT/HCPCS: 36415; 84702

== ENCOUNTER → 2021-11-10 12:14 | Outpatient (CLI) | payer OTHER, MEDICAID, SELFPAY ==
[2021-11-10 13:51] LABS: HCG Quantitative /Beta subunit 8516.6 mIU/mL
== END ==
PROVIDERS: PCP Family Medicine; Referring Provider Obstetrics & Gynecology; Visit Provider Obstetrics & Gynecology
DX: O20.9 Hemorrhage in early pregnancy, unspecified (principal)
CPT/HCPCS: 36415; 84702

== ENCOUNTER → 2021-12-13 14:16 | Outpatient (CLI) | payer OTHER, MEDICAID, SELFPAY ==
[2021-12-13 14:50] LABS: Add Manual Diff / Slide Review NO; Basophils Absolute Auto 100 /uL (0-100); Basophils Percent Auto 0.7 % (0-2); Eosinophils Absolute Auto 100 /uL (0-450); Eosinophils Percent Auto 1.6 % (2-4); Hematocrit 36.4 % (36-46); Hemoglobin 12.9 g/dL (12.0-16.0); Lymphocytes Absolute Auto 2000 /uL (1100-4500); Lymphocytes Percent Auto 26.2 % (25-40); Mean Corpuscular HGB Conc 35.4 % (30-36); Mean Corpuscular Hemoglobin 30.7 PG (26-34); Mean Corpuscular Volume 86.6 fL (80-100); Monocytes Absolute Auto 600 /uL (0-900); Monocytes Percent Auto 7.4 % (3-14); Neutrophils Absolute Auto 4800 /uL (1500-7000); Neutrophils Percent Auto 64.1 % (50-75); Platelet Count 271 X10^3/uL (150-400); Red Blood Cell Count 4.21 X10^6/uL (4.0-5.2); Red Cell Distribution Width 13.5 % (11.6-14.8); White Blood Cell Count 7.6 X10^3/uL (4.5-11.0)
[2021-12-13 17:57] LABS: Appearance Urine UA CLEAR; Bilirubin Urine UA NEGATIVE (NEGATIVE); Color Urine UA YELLOW; Glucose Urine UA NEGATIVE (Negative); Ketones Urine UA NEGATIVE (NEGATIVE); Leukocyte Esterase Urine UA NEGATIVE (NEGATIVE); Nitrite Urine UA NEGATIVE (Negative); Occult Blood Urine UA TRACE-INTACT (Negative); Protein Urine UA NEGATIVE (Negative); Specific Gravity Urine UA <=1.005 (1.000-1.035); Urobilinogen Urine UA 0.2 E.U./dL (0.2)
[2021-12-14 07:39] LABS: Varicella IgG Antibody 246 index (Immune >165)
[2021-12-14 08:24] LABS: RPR Screen Non Reactive (Non Reactive)
[2021-12-14 16:27] LABS: Hepatitis B Surface Antigen NEGATIVE s/c (NEGATIVE); Rubella Antibody IgG 67.9 IU/mL (>15)
[2021-12-14 16:39] LABS: HIV 1 & 2 Ab/Ag 4th Gen Combo NEGATIVE (NEGATIVE); Hep C Virus Ab w/Reflex Quant NEGATIVE s/c (NEGATIVE)
== END ==
PROVIDERS: PCP Family Medicine; Referring Provider Obstetrics & Gynecology; Visit Provider Obstetrics & Gynecology
DX: Z34.81 Encounter for supervision of other normal pregnancy, first trimester (principal); Z3A.10 10 weeks gestation of pregnancy
CPT/HCPCS: 36415; 80055; 81003; 86787; 86803; 86850; 86900; 86901; 87077; 87086; 87186; 87389

== ENCOUNTER → 2022-02-09 17:10 | Outpatient (CLI) | payer OTHER, MEDICAID, SELFPAY ==
[2022-02-12 13:40] LABS: AFP Value 65.4 ng/mL (.); Gest Age on Col Date 18.6 weeks (.); Insulin Dep Diabetes No (.); OSBR Risk 1IN 1802 (.); Results Report (.); Test Results *Screen Negative* (.)
== END ==
PROVIDERS: PCP Family Medicine; Referring Provider Obstetrics & Gynecology; Visit Provider Obstetrics & Gynecology
DX: Z34.82 Encounter for supervision of other normal pregnancy, second trimester (principal); Z3A.18 18 weeks gestation of pregnancy
CPT/HCPCS: 36415; 82105

== ENCOUNTER → 2022-02-19 10:07 | Outpatient (CLI) | payer OTHER, MEDICAID, SELFPAY ==
--- NOTE | 2022-02-19 10:08 | DI.US.S_ITS ---
PROCEDURE: US OB >= 14 WEEKS FETUS INDICATIONS: ANATOMY OUTSIDE/PRIOR DATING DATA: Last menstrual period (LMP): 10/02/21. LMP-based estimated date of delivery (LATANYA): 07/09/22. First dating scan (date and location): 12/13/21, outside institution. Estimated date of delivery (LATANYA) from first dating scan: 07/08/22. The calculations are made using the working LATANYA of 07/08/22. TECHNIQUE: Real-time scanning was performed of the fetus, with image documentation and biometric measurements. Endovaginal scanning: Not performed COMPARISON: [facility], , OB <= 14 WEEKS FETUS, 12/13/2021, 14:06. FINDINGS: General: A single living intrauterine gestation is present. Presentation: Breech. Placenta: Placental position is anterior , without previa. Amniotic fluid index: 18.3 cm, normal range is 5-24 cm. Single deepest vertical pocket is 5.8 cm. heart rate: 16.5 beats per minute. Maternal cervical canal: Closed and 4.3 cm long. Normal lower limit is 2.5 cm. biometrics: Biparietal diameter: 4.9 cm, 20 weeks, five days Head circumference: 18.4 cm, 20 weeks, six days Abdominal circumference: 16.0 cm, 21 weeks, 0 days Femur length: 3.6 cm, 21 weeks, two days Clinically estimated gestational age: 20 weeks, one day Composite gestational age from present scan: 21 weeks, 0 days Estimated weight and percentile: 398 g, 91st percentile Anatomic survey: Neuro: Ventricles are non-dilated at less than 10 mm. Cisterna magna is normal at 3-11 mm. Cerebellum is normal in size and morphology. Nuchal skin fold: Normal at less than 6 mm between 14-21 weeks gestational age. Face: Nose and lips, facial profile are normal. Spine: No evidence for spina bifida. Heart: 4-chambered heart is present, with normal ventricular outflow tracts. Diaphragm: Diaphragm is intact. Stomach: Left-sided stomach is present. Kidneys: No hydronephrosis. Normal is less than 5 mm in 2nd trimester, less than 7 mm in 3rd trimester. Cord: 3-vessel cord has orthotopic insertion. Bladder: Normal in size. Extremities: All 4 extremities identified. IMPRESSION: 1. Single living intrauterine with composite gestational age six days ahead of the clinically assigned gestational age. 2. Symmetric growth and normal anatomy. 3. Closed cervix and normal amniotic fluid volume. We strive to produce accurate, complete, and clear reports of imaging services. To assist us in improving patient care, this report was composed using standard report templates and voice recognition software. Therefore, it may contain abnormal punctuation, insertions and/or omissions. Occasional wrong-word or sound-alike substitutions may occur. Though we review the report and make efforts to correct it, we do recommend that the report be read carefully in proper context to recognize any text inaccuracies. Dictated by: Darlene Delgadillo M.D. on 02/19/2022 at 15:26 Approved by: Darlene Delgadillo M.D. on 02/19/2022 at 15:31
== END ==
PROVIDERS: PCP Family Medicine; Referring Provider Obstetrics & Gynecology; Visit Provider Obstetrics & Gynecology
DX: Z34.82 Encounter for supervision of other normal pregnancy, second trimester (principal); Z3A.21 21 weeks gestation of pregnancy
CPT/HCPCS: 76811

== ENCOUNTER → 2022-02-22 11:52 | Outpatient (CLI) | payer OTHER, MEDICAID, SELFPAY ==
[2022-02-22 13:24] LABS: Add Manual Diff / Slide Review NO; Basophils Absolute Auto 0 /uL (0-100); Basophils Percent Auto 0.4 % (0-2); Eosinophils Absolute Auto 100 /uL (0-450); Eosinophils Percent Auto 1.5 % (2-4); Hematocrit 34.3 % (36-46); Hemoglobin 12.1 g/dL (12.0-16.0); Lymphocytes Absolute Auto 1900 /uL (1100-4500); Lymphocytes Percent Auto 22.6 % (25-40); Mean Corpuscular HGB Conc 35.2 % (30-36); Mean Corpuscular Hemoglobin 30.5 PG (26-34); Mean Corpuscular Volume 86.7 fL (80-100); Monocytes Absolute Auto 600 /uL (0-900); Monocytes Percent Auto 7.3 % (3-14); Neutrophils Absolute Auto 5900 /uL (1500-7000); Neutrophils Percent Auto 68.2 % (50-75); Platelet Count 262 X10^3/uL (150-400); Red Blood Cell Count 3.95 X10^6/uL (4.0-5.2); Red Cell Distribution Width 13.8 % (11.6-14.8); White Blood Cell Count 8.6 X10^3/uL (4.5-11.0)
[2022-02-22 13:31] LABS: D Dimer 790 ng/ml (<500)
[2022-02-22 13:42] LABS: Alanine Aminotransferase 23 IU/L (<35); Albumin 4.2 g/dL (3.5-5.0); Albumin Globulin Ratio 1.4 (1.0-2.8); Alkaline Phosphatase 39 U/L (38-126); Aspartate Aminotransferase 23 IU/L (14-36); BUN Creatinine Ratio 13.7 (6-22); Bilirubin Total 0.3 mg/dL (0.2-1.3); Blood Urea Nitrogen 7 mg/dL (7-17); Calcium 9.6 mg/dL (8.4-10.2); Carbon Dioxide 22 mmol/L (22-32); Chloride 104 mmol/L (98-107); Estimated Glomerular Filt Rate > 60 mL/min (>60); Glucose 77 mg/dL (70-100); HEMOLYSIS < 15 (0-50); Magnesium 1.8 mg/dL (1.6-2.3); Potassium 4.2 mmol/L (3.4-5.1); Sodium 135 mmol/L (137-145); Total Protein 7.2 g/dL (6.3-8.2)
== END ==
PROVIDERS: PCP Family Medicine; Referring Provider Pediatrics; Visit Provider Pediatrics
DX: I49.3 Ventricular premature depolarization (principal); R01.1 Cardiac murmur, unspecified; R06.02 Shortness of breath
CPT/HCPCS: 36415; 80053; 83735; 85025; 85379; 93005; 93010

== ENCOUNTER → 2022-03-05 09:03 | Outpatient (CLI) | payer OTHER, MEDICAID, SELFPAY ==
--- NOTE | 2022-03-05 09:03 | DI.US.S_ITS ---
PROCEDURE: US PERIPH VENOUS LOW EXTREM BI INDICATIONS: SHORTNESS OF BREATH. ELEVATED D-DIMER. TECHNIQUE: Real-time imaging, as well as color and pulse Doppler interrogation, were performed of the deep veins of both legs from the inguinal ligament to the popliteal fossa. COMPARISON: None. FINDINGS: Right: The common femoral, femoral and popliteal veins are normally compressible, and free of intraluminal thrombus. Color and pulse Doppler demonstrate normal phasic intravascular flow. There is normal augmentation response to distal compression maneuver. Left: The common femoral, femoral and popliteal veins are normally compressible, and free of intraluminal thrombus. Color and pulse Doppler demonstrate normal phasic intravascular flow. There is normal augmentation response to distal compression maneuver. IMPRESSION: Negative bilateral lower extremity duplex venous ultrasound for DVT. Dictated by: Adin Sultana M.D. on 03/05/2022 at 9:37 Approved by: Adin Sultana M.D. on 03/05/2022 at 9:37
== END ==
PROVIDERS: PCP Family Medicine; Referring Provider Pediatrics; Visit Provider Pediatrics
DX: O99.891 Other specified diseases and conditions complicating pregnancy (principal); R00.2 Palpitations; R06.02 Shortness of breath; R79.1 Abnormal coagulation profile
CPT/HCPCS: 93970

== ENCOUNTER → 2022-04-05 09:31 | Outpatient (CLI) | payer OTHER, MEDICAID, SELFPAY ==
[2022-04-05 11:46] LABS: Appearance Urine UA CLEAR; Bilirubin Urine UA NEGATIVE (NEGATIVE); Color Urine UA YELLOW; Glucose Urine UA NEGATIVE (Negative); Ketones Urine UA NEGATIVE (NEGATIVE); Leukocyte Esterase Urine UA NEGATIVE (NEGATIVE); Nitrite Urine UA NEGATIVE (Negative); Occult Blood Urine UA TRACE-INTACT (Negative); Protein Urine UA NEGATIVE (Negative); Urobilinogen Urine UA 0.2 E.U./dL (0.2)
[2022-04-05 11:48] LABS: pH Urine UA 6.5 (4.5-8.0)
[2022-04-05 11:51] LABS: Hematocrit 31.2 % (36-46); Hemoglobin 10.8 g/dL (12.0-16.0)
[2022-04-05 11:51] LABS: Bacteria Urine None Seen; Culture Indicated Urine Cult Not Indicated; RBC Urine None Seen (0-5/HPF); Urine Comments Microscopic Normal; WBC Urine None Seen (0-5/HPF)
[2022-04-05 15:18] LABS: GTT (PREG) 1 Hour PP 50gm Dose 178 mg/dL (76-139)
== END ==
PROVIDERS: PCP Family Medicine; Referring Provider Obstetrics & Gynecology; Visit Provider Obstetrics & Gynecology
DX: R30.0 Dysuria (principal); M54.50 Low back pain, unspecified; Z34.82 Encounter for supervision of other normal pregnancy, second trimester; Z3A.26 26 weeks gestation of pregnancy
CPT/HCPCS: 81001; 82950; 85014; 85018

== ENCOUNTER → 2022-04-12 12:38 | Outpatient (CLI) | payer OTHER, MEDICAID, SELFPAY ==
[2022-04-12 13:45] LABS: Appearance Urine UA CLEAR; Bilirubin Urine UA NEGATIVE (NEGATIVE); Color Urine UA YELLOW; Glucose Urine UA NEGATIVE (Negative); Ketones Urine UA 2+ (NEGATIVE); Leukocyte Esterase Urine UA NEGATIVE (NEGATIVE); Nitrite Urine UA NEGATIVE (Negative); Occult Blood Urine UA NEGATIVE (Negative); Protein Urine UA NEGATIVE (Negative); Specific Gravity Urine UA 1.025 (1.000-1.035); Urobilinogen Urine UA 0.2 E.U./dL (0.2)
== END ==
PROVIDERS: PCP Family Medicine; Referring Provider Obstetrics & Gynecology; Visit Provider Obstetrics & Gynecology
DX: N39.0 Urinary tract infection, site not specified (principal)
CPT/HCPCS: 81003

== ENCOUNTER 2022-06-06 02:29 | Inpatient (IN) | payer OTHER, MEDICAID, SELFPAY ==
--- NOTE | 2022-06-06 04:12 | P.HPOB_ITS ---
OB HPI Date/Time Date of admission: 06/06/22 Date Patient Seen: 06/06/22 Time Patient Seen: 04:17 History of Present Condition Chief complaint: Labor LATANYA Calculator Estimated Delivery Date Method Current WG Current Estimate 07/09/22 LMP (Certain) 35w 2d Other Estimates 07/08/22 Ultrasound #1 35w 3d Estimated Gestational Age (weeks): 35+2 : 5 Para: 3 care: good care, initiated at week # (10), number of visits (8) and pounds weight gain (24) Dating criteria OB: LMP confirmed by 1st trimester US Ultrasounds: normal 1st trimester US and normal mid trimester US Obstetrical complications: gestational diabetes (on Metformin 500mg BID) Medical complications OB: none Indications Operative indications ( section): previous uterine surgery (Previous C/S x 3) Other reason(s) for admission: Patient is a 36-year-old 5 para 3 who presented at 35-,2/7 weeks gestation with spontaneous rupture of membranes with clear amniotic fluid. She has a history of 3 prior sections. Preadmission Labs Last OB Lab Results: Blood Type A Positive 12/13/21 14:25 Antibody Screen Negative 12/13/21 14:25 Hematocrit 31.2 % (36-46) L 04/05/22 10:38 Hemoglobin 10.8 g/dL (12.0-16.0) L 04/05/22 10:38 Hepatitis B Surface Antigen Negative s/c (NEGATIVE) 12/13/21 14 :25 Hepatitis C Antibody Negative s/c (NEGATIVE) 12/13/21 14:25 Rubella Antibody 67.9 IU/mL (>15) 12/13/21 14:25 Varicella-Zoster IgG Antibody 246 index (Immune >165) 12/13/21 14:25 Glucose 1 Hour 178 mg/dL (76-139) H 04/05/22 10:38 Fasting Glucose 97 mG/dL (70-105) 07/24/16 08:25 Glucose 3 Hour 80 mg/dL (70-145) 07/24/16 11:39 Group B Streptococcus (PCR) Negative for GBS (Negative-) 16:34 -: Chlamydia screen: negative, Gonorrhea screen: negative and Urine: positive (Enterococcus, treated) -: PAP smear: Normal Genetic Screens: Cell-free DNA: Normal (normal male) and Alpha-fetoprotein: Normal External Labs -: Urine: positive (Enterococcus, treated) Prior (ies) Past Pregnancies Del. Date GA/Weeks Labor Lgth Wt Sex Route Outcome Anesthesia Place Delv Breastfeed Preg Comp Name 06/13/04 40 9 lb 6 oz [facility] [place] [facility] 39 8 lb 9 oz Male live - full term [place], [place] 2 years gestational diabetes Kevin 04/30/12 10 spontaneous 10/15/16 39 9 lb 10 oz Male live - full term [facility] 2 years [place] Delivery Date: 06/13/04 Last Updated by: Dara Prasad R.N. given up for adoption Delivery Date: 10/21/08 Last Updated by: Dara Prasad R.N. GDM managed on metformin Delivery Date: 04/30/12 Last Updated by: Dara Prasad R.N. Required D&C, pathology showed chromosomal anomaly Delivery Date: 10/15/16 Last Updated by: Dara Prasad R.N. tongue tied Evaluation Evaluation Baseline heart rate: 135 Variability: Moderate (11-25) monitor accelerations: Present Monitor Decelerations: Absent Contraction Frequency (minutes): 5 Uterine Contraction Intensity: Mild Status: Category l Effacement (%): 80 Position of cervix: posterior Consistency: soft PFSH Medical History (Updated 05/06/22 @ 19:41 by Octavia Hartman MD) Benign tumor of spinal meninges Fibromyalgia Gestational diabetes Surgical History (Updated 12/13/21 @ 14:15 by Octavia Hartman MD) Hx of abdominoplasty Hx of breast augmentation Hx of removal of ovary Family History (Updated 12/07/21 @ 10:22 by Dara Prasad RN) Mother Diabetes mellitus Hypertension Breast cancer Heart disease Father Diabetes mellitus Hypertension Heart disease Small cell lung cancer in adult Social History marital status: unmarried,single details: s/o travels, home ~1 week every few months number of children: 3 household members: children lives independently: Yes housing: house pets and animals: Yes (2 dogs and 1 cat, does not manage litter box.) education level: college occupational status: employed current occupational exposures/hazards: Yes (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.) special nasim needs: No travel history: over 6 months ago seatbelt use: always helmet use: Yes water heater temp set < 120 deg: Yes (Will check and adjust if needed) working smoke detector in home: Yes fire extinguisher in home: Yes carbon monox detector in home: Yes firearms in home: Yes firearms unloaded and locked: Yes do you feel safe at home: Yes Smoking Status: Former smoker second hand exposure: No alcohol intake: former substance use type: marijuana during the past year weight has: increased > 10 lbs well-balanced diet: daily or most days daily servings fruits/ve-4 caffeine: Yes Type(s) of exercise: none Meds Home Medications and Allergies Home Medications Medication Instructions Recorded Confirmed Type folic acid 1 mg tablet 1 mg PO DAILY 12/07/21 06/05/22 History prenat.vits,kendall,aap-ukdg-kekrp 1 tab PO DAILY 12/07/21 06/05/22 History biotin PO 02/22/22 06/05/22 History calcium acetate PO 02/22/22 06/05/22 History cholecalciferol (vitamin D3) PO 02/22/22 06/05/22 History fenofibric acid (choline) PO 02/22/22 06/05/22 History insulin NPH isoph U-100 human 100 10 unit (0.1 mL) SUBCUT QPM #15 mL 04/23/22 06/05/22 Rx unit/mL (3 mL) subcutaneous pen pen needle, diabetic 31 gauge x #100 ea 04/23/22 06/05/22 Rx 5/16 (Comfort EZ Pen [place]) metformin 500 mg tablet,extended 500 mg PO DAILY #30 tabs 05/04/22 06/05/22 Rx release 24 hr pantoprazole 40 mg tablet,delayed 40 mg PO DAILY #30 tabs 06/05/22 06/05/22 Rx release (Protonix) Allergies Allergy/AdvReac Type Severity Reaction Status Date / Time oxycodone AdvReac Mild Vomiting Verified 06/05/22 08:17 tramadol AdvReac Vomiting Verified 06/05/22 08:17 OB Exam Narrative Exam Narrative: Generally: Patient is sitting up in bed, no acute distress Lungs: Clear to auscultation bilaterally Cardiovascular: Regular rate and rhythm Fundal height: 36 cm Estimated weight: 5 lb 13 oz by ultrasound earlier today Extremities: No edema Assessment and Plan Assessment and Plan Assessment and Plan narrative: Assessment: 36-year-old 5 para 3 at 35-,2/7 weeks gestation with spontaneous rupture membranes with clear amniotic fluid Gestational diabetes on metformin 500 mg b.i.d. (FBS 117) GBS obtained COVID swab obtained Pediatrics notified The risks, benefits, and alternatives to the procedure were explained to the patient. The risks including bleeding, infection, injury to the bowel, bladder, or ureters. She understands these risks and agrees to proceed. A full par Q was held and consent form was signed. Time Spent with Patient Total time spent with greater than 50% in coordination of care (as documented) at patient's floor/unit and/or counseling patient:: 25 - 35 minutes
--- NOTE | 2022-06-06 04:29 | PM.PREOP ---
Pre-operative Note COVID-19 COVID-19 status: Negative Result date/Date tested (Pos, Neg/Pending): 06/06/22 Criteria for continued procedure: Non-surgical alternatives not available or appropriate per current SOC Interval Note History & Physical reviewed/Exam performed by Physician: Yes Changes to H&P: No H&P completed within 30 days and has changed as indicated here:: 06/06/22
[2022-06-06 04:42] LABS: Strep Grp B PCR NEG for Grp B Strep
[2022-06-06 04:43] LABS: Add Manual Diff / Slide Review NO; Basophils Absolute Auto 0 /uL (0-100); Basophils Percent Auto 0.3 % (0-2); Eosinophils Absolute Auto 100 /uL (0-450); Eosinophils Percent Auto 0.7 % (2-4); Hematocrit 32.9 % (36-46); Hemoglobin 11.4 g/dL (12.0-16.0); Lymphocytes Absolute Auto 1900 /uL (1100-4500); Lymphocytes Percent Auto 18.6 % (25-40); Mean Corpuscular HGB Conc 34.6 % (30-36); Mean Corpuscular Hemoglobin 29.5 PG (26-34); Mean Corpuscular Volume 85.3 fL (80-100); Monocytes Absolute Auto 700 /uL (0-900); Monocytes Percent Auto 7.1 % (3-14); Neutrophils Absolute Auto 7300 /uL (1500-7000); Neutrophils Percent Auto 73.3 % (50-75); Platelet Count 216 X10^3/uL (150-400); Red Blood Cell Count 3.85 X10^6/uL (4.0-5.2); Red Cell Distribution Width 13.6 % (11.6-14.8)
[2022-06-06 04:54] LABS: COVID19 -Nasal RAPID Negative (Negative)
[2022-06-06] MEDS: CEFAZOLIN 2 GM/100 ML PREMIX 100 ML IV (05:15)
--- NOTE | 2022-06-06 05:24 | SUR.OPER ---
Supine on Padded OR bed, head on pillow, safety belt at thigh, arms secured on padded arm boards at <90 degrees abduction. Bump under right buttock. Legs uncrossed with pillow under knees, gel pad to heels, tape over blanket to lower legs.
[2022-06-06] MEDS: LACTATED RINGERS 1,000 ML 100 ML IV (05:25)
[2022-06-06] MEDS: ACETAMINOPHEN IV 1,000 MG/100 ML VIAL 400 MG IV (05:44)
--- NOTE | 2022-06-06 05:51 | SUR.OPER ---
viable baby boy born at 0530, placenta delivered at 0533, 8/9, cord blood and placenta given to OB RN
--- NOTE | 2022-06-06 06:05 | P.PCN_ITS ---
Procedures Date/Time Date of procedure: 06/06/22 Time of procedure: 05:30 General Procedure description: I assisted the OB battery container tester in the section for this patient. My responsibilities included retracting and suctioning, providing fundal pressure during delivery and following with suture during closure. Please see the OB's note for details of the surgery.
[2022-06-06 06:19] VITALS: BP 113/67; PULSE 77; RESP 16; TEMP 36.3; O2SAT 94
[2022-06-06 06:29] VITALS: BP 126/72; PULSE 92; RESP 20; RESP 22; O2SAT 96; O2SAT 98
[2022-06-06] MEDS: ONDANSETRON 4 MG/2 ML INJ IV ×2 (06:32→17:44)
--- NOTE | 2022-06-06 06:32 | PM.OBCS.1 ---
Operative Date/Time/Diagnoses Date of procedure: 06/06/22 Time of procedure: 06:32 Pre-op diagnosis: 35-2/7 weeks gestation Previous section x3 Spontaneous rupture of membrane Post-op diagnosis: same Procedure & Clinicians Procedure: Repeat low-transverse section Same procedure as scheduled: Yes Indications: Previous section x3 Spontaneous rupture of membranes Surgeon: Octavia Hartman Click Yes if Unassisted: No Personal Lines Advisor: Shannan Dumont Reason for Personal Lines Advisor: The assistant reading teacher was necessary to retract upon entry into the abdomen and uterus. She is cyst did with fundal pressure on delivery of the infant. She assisted with retraction and clipping of suture upon closure of the uterus and abdomen. Anesthesia Type: Spinal (With Duramorph) Operative Notes Findings: Live male infant in the direct occiput posterior presentation Normal tubes and ovaries Closure Type: primary Specimen(s): cord blood and placenta Intraoperative meds administered: Acetaminophen, Duramorph, Ketorolac and Pitocin Applied: Catheter (To continuous drainage) Estimated Blood Loss (mL): 650 Blood products transfused: none Procedure in detail: The patient was taken to the operating room where she was placed in the seated position. Spinal anesthesia with Duramorph was administered. The patient was then placed in the dorsal supine position with a leftward tilt. She was prepped and draped in the usual sterile fashion. A timeout was performed. After spinal analgesia was found to be adequate, a Pfannenstiel skin incision was made through the previous incision and carried through to the underlying layer fascia. The fascia was nicked in the midline, and the incision extended bilaterally with the Mojica scissors. The superior aspect of the fascial incision was grasped with a Stuart clamps, elevated, and the underlying rectus muscles dissected off sharply and bluntly. Attention was then turned to the inferior aspect of this incision which in a similar fashion was grasped with a Stuart clamps, elevated, and the underlying rectus muscles dissected off sharply and bluntly. The rectus muscles were in the midline. The peritoneum was identified, grasped between 2 hemostats, and entered sharply with the Metzenbaum scissors. This incision was extended superiorly and inferiorly with good visualization of the bladder. The bladder blade was inserted. The vesicouterine peritoneum was identified, grasped with the pickup, and entered sharply with the Metzenbaum scissors. This incision was extended bilaterally, and the bladder flap was created digitally. The bladder blade was reinserted. The lower uterine segment was incised in a transverse fashion with the scalpel. Upon entering the amniotic sac there was moderate amount of clear amniotic fluid. The infant's head was delivered with vacuum assistance. The nose and mouth were suctioned with bulb suction. The remainder of the body delivered without difficulty. The cord was double clamped and cut after 1 minute. The was handed off to waiting RN and RT. The placenta was delivered manually. The uterus was cleared of all clots and debris. The uterine incision was repaired with #1 chromic in a running interlocking fashion, and a second layer the same suture was used for an imbricating layer. There was 1 area of bleeding on the upper portion of the uterine incision. A eerdjl-xp-urajf suture was placed for hemostasis. Hemostasis was achieved. The tubes and ovaries were examined and were found to be normal. The gutters were cleared of all clots and debris. The bladder flap was reapproximated using 2-0 Vicryl in a running fashion. The parietal peritoneum was closed using 2-0 Vicryl in a running fashion. The fascia was reapproximated using 0 Vicryl in a running fashion. The subcutaneous layer was copiously irrigated with warm normal saline. 6 simple interrupted sutures of 3-0 Vicryl were placed to reapproximate the subcutaneous layer. The skin was closed with 4-0 Monocryl in a subcuticular fashion. Steri-Strips were placed. An Aquacel dressing was placed. The uterus was expressed of a small amount of old blood. Sponge, lap, and instrument counts were correct x-2. The patient tolerated the procedure well, and was taken to PACU in stable condition. Complications: none [place] Baby 1: Gender: Male Presentation: vertex Position: Occiput Posterior Placental Delivery Description: Expressed Cord Vessel Description: 3 Vessels, Nuchal Cord and Reduced score (1 min): 8 score (5 min): 9 weight: 7 lb 5 oz Post-operative Condition: stable Disposition: PACU Aftercare: routine postop
[2022-06-06 06:35] VITALS: BP 110/58; PULSE 96; RESP 20; O2SAT 94
[2022-06-06] MEDS: SCOPOLAMINE 1 PATCH TOP (07:40)
[2022-06-06] MEDS: ACETAMINOPHEN 325 MG TABLET 650 MG PO ×3 (08:29→20:51)
[2022-06-06] MEDS: diphenhydrAMINE 50 MG/ML VIAL 25 MG IV (08:46)
[2022-06-06] MEDS: KETOROLAC 30 MG/ML VIAL IV ×2 (11:13→17:32)
[2022-06-06] MEDS: METOCLOPRAMIDE 10 MG/2 ML INJ IV (11:13)
[2022-06-06] MEDS: DOCUSATE 100 MG CAPSULE PO (20:51)
[2022-06-07] MEDS: KETOROLAC 30 MG/ML VIAL IV (00:01)
[2022-06-07] MEDS: ACETAMINOPHEN 325 MG TABLET 650 MG PO ×2 (03:06→08:29)
[2022-06-07] MEDS: IBUPROFEN 600 MG TABLET PO ×2 (07:13→13:34)
[2022-06-07] MEDS: DOCUSATE 100 MG CAPSULE PO (08:29)
[2022-06-07] MEDS: MAGNESIUM HYDROXIDE 30 ML UDC PO (10:17)
[2022-06-07] MEDS: OXYCODONE IR 5 MG TABLET PO (13:41)
[2022-06-07] MEDS: ONDANSETRON 4 MG ODT SL (13:41)
== END 2022-06-07 14:19 | disposition home or self-care (01) | DRG 540 ==
PROVIDERS: Admitting Provider Obstetrics & Gynecology; PCP Family Medicine; Referring Provider Obstetrics & Gynecology; Visit Provider Obstetrics & Gynecology
PROC: 10D00Z1 Extraction of Products of Conception, Low, Open Approach (ICD-10-PCS; CPT 59514; principal; 2022-06-06 05:00)
DX: O34.211 Maternal care for low transverse scar from previous cesarean delivery (principal); O42.013 Preterm premature rupture of membranes, onset of labor within 24 hours of rupture, third trimester; O24.425 Gestational diabetes mellitus in childbirth, controlled by oral hypoglycemic drugs; Z3A.35 35 weeks gestation of pregnancy; Z37.0 Single live birth; Z20.822 Contact with and (suspected) exposure to COVID-19
CPT/HCPCS: 36415; 59050; 59514; 84112; 85025; 86850; 86900; 86901; 87081; 87147; 87635; 87653; C9803; G0379; J0131; J0690; J1200; J1885; J2274; J2405; J2765; J3010

== ENCOUNTER → 2022-10-31 16:02 | Outpatient (CLI) | payer OTHER, MEDICAID, SELFPAY ==
[2022-10-31 16:46] LABS: Hematocrit 38.5 % (36-46); Hemoglobin 13.1 g/dL (12.0-16.0); Mean Corpuscular HGB Conc 34.1 % (30-36); Mean Corpuscular Hemoglobin 28.8 PG (26-34); Mean Corpuscular Volume 84.5 fL (80-100); Platelet Count 297 X10^3/uL (150-400); Red Blood Cell Count 4.56 X10^6/uL (4.0-5.2); Red Cell Distribution Width 14.9 % (11.6-14.8); White Blood Cell Count 7.2 X10^3/uL (4.5-11.0)
[2022-10-31 17:31] LABS: Alanine Aminotransferase 47 IU/L (<35); Albumin 4.9 g/dL (3.5-5.0); Albumin Globulin Ratio 1.8 (1.0-2.8); Alkaline Phosphatase 57 U/L (38-126); Aspartate Aminotransferase 31 IU/L (14-36); BUN Creatinine Ratio 24.1 (6-22); Bilirubin Total 0.4 mg/dL (0.2-1.3); Blood Urea Nitrogen 20 mg/dL (7-17); Calcium 9.9 mg/dL (8.4-10.2); Carbon Dioxide 27 mmol/L (22-32); Chloride 101 mmol/L (98-107); Estimated Glomerular Filt Rate > 60 mL/min (>60); Globulin 2.7 g/dL (1.7-4.1); Glucose 103 mg/dL (70-100); HEMOLYSIS < 15 (0-50); Potassium 4.5 mmol/L (3.4-5.1); Sodium 137 mmol/L (137-145); Total Protein 7.6 g/dL (6.3-8.2)
== END ==
PROVIDERS: PCP Family Medicine; Referring Provider Nurse Practitioner Family; Visit Provider Nurse Practitioner Family
DX: Z39.1 Encounter for care and examination of lactating mother (principal); R10.9 Unspecified abdominal pain; R31.9 Hematuria, unspecified; Z98.891 History of uterine scar from previous surgery
CPT/HCPCS: 36415; 80053; 81002; 85027

== ENCOUNTER → 2022-11-06 08:34 | Outpatient (CLI) | payer OTHER, MEDICAID, SELFPAY ==
--- NOTE | 2022-11-06 08:35 | DI.US.S_ITS ---
PROCEDURE: US ABDOMEN COMPLETE INDICATIONS: PAIN AND MICRO HEMATURIA. POST . TECHNIQUE: Real-time scanning was performed of the abdominal and retroperitoneal organs, with image documentation. COMPARISON: [facility], , US ABDOMEN LIMITED, 02/08/2021, 10:56. FINDINGS: Liver: Echogenic. Liver length of 16.8 cm. Gallbladder: No stones, wall thickening, or sonographic Tellez sign. Biliary ducts: Intrahepatic bile ducts are non-dilated. Extrahepatic bile duct caliber measures 6 mm. Normal is 6-7 mm or less in diameter, or 10 mm or less post-cholecystectomy. Pancreas: Visualized portions of the pancreas are sonographically normal. Spleen: Spleen is normal in size and homogeneous in echotexture. Kidneys: Kidneys are normal in size and echotexture. Right kidney measures 12.5 cm long; left kidney measures 11.3 cm long. No hydronephrosis or nephrolithiasis. No solid masses. Aorta: Not well visualized due to bowel gas. Iliacs: Not well visualized due to bowel gas. IVC: Intrahepatic inferior vena cava is patent. Miscellaneous: No free abdominal fluid. IMPRESSION: 1. No hydronephrosis or evidence of nephrolithiasis. 2. The liver is echogenic, a nonspecific finding commonly seen in the setting of steatosis. Dictated by: Bradley Dobson M.D. on 11/06/2022 at 16:31 Approved by: Bradley Dobson M.D. on 11/06/2022 at 16:33
== END ==
PROVIDERS: PCP Family Medicine; Referring Provider Nurse Practitioner Family; Visit Provider Nurse Practitioner Family
DX: R10.9 Unspecified abdominal pain (principal); R31.9 Hematuria, unspecified; Z39.1 Encounter for care and examination of lactating mother; Z98.891 History of uterine scar from previous surgery
CPT/HCPCS: 76700

== ENCOUNTER 2024-01-09 14:22 | Emergency (ER) | payer OTHER, MEDICAID, SELFPAY ==
[2024-01-09 14:32] VITALS: BP 157/89; PULSE 79; RESP 16; TEMP 36.6; O2SAT 96; BMI 36.0
--- NOTE | 2024-01-09 15:48 | DI.RAD.S_ITS ---
PROCEDURE: XR CHEST 1V INDICATIONS: Chest pain TECHNIQUE: One view of the chest was acquired. COMPARISON: [facility], CR, XR CHEST 1V, 04/27/2021, 12:25. FINDINGS: Surgical changes and devices: None. Lungs and pleura: Lungs are clear. No pleural effusions or pneumothorax. Mediastinum: Mediastinal contours appear normal. Heart size is normal. Bones and chest wall: No suspicious bony lesions. Overlying soft tissues appear unremarkable. IMPRESSION: No acute pulmonary process. Dictated by: Heidi Delacruz M.D. on 01/09/2024 at 16:30 Approved by: Heidi Delacruz M.D. on 01/09/2024 at 16:30
--- NOTE | 2024-01-09 15:48 | EKG_ITS ---
[place] [id number] [place] [id number] Test Date: 2024-01-09 Pat Name: Rica Arriola Department: [facility] Room: Gender: Female Boat Pilot: RIVKA : 1985 Requested By: Order Number: [id number] Reading MD: Leandro Ram Measurements Intervals [place] Rate: 83 P: 15 SD: 162 QRS: 13 QRSD: 76 T: 16 QT: 364 QTc: 427 Interpretive Statements Normal sinus rhythm Cannot rule out Anterior infarct , age undetermined Doubt anterior OK, similar to previous. Electronically Signed On 01-09-2024 18:02:19 PDT by Leandro Ram
--- NOTE | 2024-01-09 15:48 | DI.CT.S_ITS ---
PROCEDURE: CT HEAD/BRAIN WO CON INDICATIONS: Nine days of headache with facial numbness TECHNIQUE: Noncontrast 4.5 mm thick angled axial sections acquired from the foramen magnum to the vertex, with coronal and sagittal reformats. For radiation dose reduction, the following was used: automated exposure control, adjustment of mA and/or kV according to patient size. COMPARISON: [facility], CT, CT HEAD/BRAIN WO CON, 11/07/2018, 12:29. FINDINGS: Image quality: Diagnostic. CSF spaces: Basal cisterns are patent. No extra-axial fluid collections. Ventricles are normal in size and shape. Brain: No midline shift. No intracranial masses or hemorrhage. Tucker-white matter interface is normal. Skull and face: Calvarium and visualized facial bones are intact, without suspicious lesions. Sinuses: Incidental note made of the presence of a prominent right maxillary sinus Soledad cell. Prominent right maxillary sinus mucosal retention cysts. Otherwise paranasal sinuses and mastoids as visualized are clear.. IMPRESSION: Right maxillary sinus Soledad cell, prominent right maxillary sinus mucous retention cyst. No acute intracranial pathology. Dictated by: Adin Sultana M.D. on 01/09/2024 at 16:50 Approved by: Adin Sultana M.D. on 01/09/2024 at 16:51
[2024-01-09 16:10] LABS: Add Manual Diff / Slide Review NO; Basophils Absolute Auto 100 /uL (0-100); Basophils Percent Auto 0.7 % (0-2); Eosinophils Absolute Auto 100 /uL (0-450); Eosinophils Percent Auto 1.8 % (2-4); Hematocrit 38.9 % (36-46); Hemoglobin 13.5 g/dL (12.0-16.0); Lymphocytes Absolute Auto 2200 /uL (1100-4500); Lymphocytes Percent Auto 26.9 % (25-40); Mean Corpuscular HGB Conc 34.7 % (30-36); Mean Corpuscular Hemoglobin 30.6 PG (26-34); Mean Corpuscular Volume 88.2 fL (80-100); Monocytes Absolute Auto 500 /uL (0-900); Monocytes Percent Auto 6.8 % (3-14); Neutrophils Absolute Auto 5100 /uL (1500-7000); Neutrophils Percent Auto 63.8 % (50-75); Platelet Count 305 X10^3/uL (150-400); Red Blood Cell Count 4.41 X10^6/uL (4.0-5.2); Red Cell Distribution Width 13.3 % (11.6-14.8)
[2024-01-09 16:22] LABS: Creatine Kinase 98 U/L (30-135)
[2024-01-09 16:35] LABS: Troponin I < 0.012 ng/mL (0.01-0.034)
[2024-01-09 16:40] LABS: Alanine Aminotransferase 146 IU/L (<35); Albumin 4.9 g/dL (3.5-5.0); Albumin Globulin Ratio 1.8 (1.0-2.8); Alkaline Phosphatase 48 U/L (38-126); Aspartate Aminotransferase 124 IU/L (14-36); Bilirubin Total 0.5 mg/dL (0.2-1.3); Blood Urea Nitrogen 17 mg/dL (7-17); Calcium 9.6 mg/dL (8.4-10.2); Carbon Dioxide 27 mmol/L (22-32); Chloride 103 mmol/L (98-107); Estimated Glomerular Filt Rate > 60 mL/min (>60); Globulin 2.8 g/dL (1.7-4.1); Glucose 104 mg/dL (70-100); HEMOLYSIS < 15 (0-50); Lipase 301 U/L (23-300); Potassium 4.2 mmol/L (3.4-5.1); Sodium 139 mmol/L (137-145); Total Protein 7.7 g/dL (6.3-8.2)
[2024-01-09 17:46] VITALS: PULSE 81; O2SAT 95
[2024-01-09 17:56] VITALS: BP 133/69; PULSE 89; O2SAT 98
[2024-01-09 18:00] VITALS: BP 135/70; PULSE 81; O2SAT 97
--- NOTE | 2024-01-09 18:50 | ED.HA ---
HPI - Headache General Chief Complaint: Headache Stated Complaint: headache t-9, chest pain, dizzines Time Seen by Provider: 01/09/24 15:47 Mode of arrival: Ambulatory History of Present Illness HPI Narrative: 38-year-old female complains of 9 days' duration of bilateral bitemporal headache, vicelike, denies photophobia, some nausea without emesis, denies neck pain, no pain with movement of her neck, no double vision or blurred vision. No injury or trauma. No fevers. Had had some fleeting chest pain, resolved. Denies recent cough. She was referred to the emergency department to consider IV headache cocktail, and imaging. No history of recurrent headaches. No recent exposure to persons with upper respiratory infection symptoms. Denies loose stools diarrhea, denies black or red stools. Denies painful urination, denies foul-smelling urine, denies flank pain. She is currently , drove herself, does not want any sedating medications. She had taken ibuprofen and Tylenol. Related Data Home Medications Medication Instructions Recorded Confirmed folic acid 1 mg tablet 1 mg PO DAILY 12/07/21 10/31/22 prenat.vits,kendall,yjf-jdvv-luuax 1 tab PO DAILY 12/07/21 10/31/22 biotin PO 02/22/22 10/31/22 calcium acetate PO 02/22/22 10/31/22 cholecalciferol (vitamin D3) PO 02/22/22 10/31/22 fenofibric acid (choline) PO 02/22/22 10/31/22 Previous Rx's Medication Instructions Recorded pantoprazole 40 mg tablet,delayed 40 mg PO DAILY #30 tabs 06/05/22 release (Protonix) ibuprofen 600 mg tablet 600 mg PO Q6H PRN pain #30 tabs 06/07/22 Allergies Allergy/AdvReac Type Severity Reaction Status Date / Time oxycodone AdvReac Mild Vomiting Verified 01/09/24 14:37 tramadol AdvReac Vomiting Verified 01/09/24 14:37 Patient History Medical History (Updated 01/09/24 @ 20:13 by Shay Peraza MD) Gestational diabetes Benign tumor of spinal meninges Fibromyalgia Surgical History (Updated 12/13/21 @ 14:15 by Octavia Hartman MD) Hx of abdominoplasty Hx of breast augmentation Hx of removal of ovary Family History (Updated 12/07/21 @ 10:22 by Dara Prasad RN) Mother Diabetes mellitus Hypertension Breast cancer Heart disease Father Diabetes mellitus Hypertension Heart disease Small cell lung cancer in adult Social History marital status: unmarried,single details: s/o travels, home ~1 week every few months number of children: 3 household members: children lives independently: Yes housing: house pets and animals: Yes (2 dogs and 1 cat, does not manage litter box.) education level: college occupational status: employed current occupational exposures/hazards: Yes (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.) special nasim needs: No travel history: over 6 months ago seatbelt use: always helmet use: Yes water heater temp set < 120 deg: Yes (Will check and adjust if needed) working smoke detector in home: Yes fire extinguisher in home: Yes carbon monox detector in home: Yes firearms in home: Yes firearms unloaded and locked: Yes do you feel safe at home: Yes Smoking Status: Never smoker second hand exposure: No alcohol intake: former substance use type: marijuana during the past year weight has: increased > 10 lbs well-balanced diet: daily or most days daily servings fruits/ve-4 caffeine: Yes Type(s) of exercise: none Smoking Status: Never smoker alcohol intake frequency: a few times a month Substance Use Type: does not use Exam Narrative Exam Narrative: GENERAL: Well-developed patient, in mild distress. HEAD: Atraumatic. Normocephalic. EYES: Pupils equal round and reactive. Extraocular motions intact. No scleral icterus. No injection or drainage. ENT: Nose without bleeding, purulent drainage. Throat without erythema, tonsillar hypertrophy or exudate. Airway patent. NECK: Trachea midline. Non tender CARDIOVASCULAR: Regular rate and rhythm without murmurs, gallops, or rubs. RESPIRATORY: Clear to auscultation. Breath sounds equal bilaterally. No wheezes, rales, or rhonchi. GASTROINTESTINAL: Abdomen soft, non-tender, nondistended. EXTREMITIES: No edema or joint tenderness. BACK: Nontender without deformity or crepitance. No flank tenderness. NEURO: AOx3. SKIN: No rash or erythema of visible areas Initial Vital Signs Initial Vital Signs: Vital Signs Temperature 98 F 01/09/24 14:32 Pulse Rate 79 01/09/24 14:32 Respiratory Rate 16 01/09/24 14:32 Blood Pressure 157/89 H 01/09/24 14:32 Pulse Oximetry 96 01/09/24 14:32 Oxygen Delivery Method Room Air 01/09/24 14:32 Course Orders Ordered: ED Orders 01/09/24 15:48 CT head/brain wo con Stat XR chest 1V Stat EKG-12 Lead Stat 01/09/24 16:00 Complete Blood Count AUTO DIFF Stat Comprehensive Metabolic Panel Stat Lipase Stat Troponin & CK Cardiac Panel Stat 01/09/24 19:00 Covid-19 + FLU A/B + RSV - PCR Stat Vital Signs Vital signs: Vital Signs - 8 hr 01/09/24 14:32 01/09/24 17:46 01/09/24 17:56 Temperature 98 F Pulse Rate 79 81 Respiratory Rate 16 Blood Pressure 157/89 H 133/69 Pulse Oximetry 96 95 Oxygen Delivery Method Room Air 01/09/24 17:56 01/09/24 18:00 01/09/24 18:00 Temperature Pulse Rate 89 81 Respiratory Rate Blood Pressure 135/70 Pulse Oximetry 98 97 Oxygen Delivery Method MDM - Headache Lab Data Attestation: I reviewed the patient's lab results. 01/09/24 16:00 01/09/24 16:00 Labs: Lab Results 01/09/24 01/09/24 Range/Units 16:00 19:00 WBC 8.0 (4.5-11.0) X10^3/uL RBC 4.41 (4.0-5.2) X10^6/uL Hgb 13.5 (12.0-16.0) g/dL Hct 38.9 (36-46) % MCV 88.2 (80-100) fL MCH 30.6 (26-34) PG MCHC 34.7 (30-36) % RDW 13.3 (11.6-14.8) % Plt Count 305 (150-400) X10^3/uL Neut % (Auto) 63.8 (50-75) % Lymph % (Auto) 26.9 (25-40) % [place] % (Auto) 6.8 (3-14) % Eos % (Auto) 1.8 L (2-4) % Baso % (Auto) 0.7 (0-2) % Neut # (Auto) 5100 (0832-3584) /uL Lymph # (Auto) 2200 (3272-2559) /uL [place] # (Auto) 500 (0-900) /uL Eos # (Auto) 100 (0-450) /uL Baso # (Auto) 100 (0-100) /uL Sodium 139 (137-145) mmol/L Potassium 4.2 (3.4-5.1) mmol/L Chloride 103 (98-107) mmol/L Carbon Dioxide 27 (22-32) mmol/L BUN 17 (7-17) mg/dL Creatinine 0.68 (0.52-1.04) mg/dL Estimated GFR > 60 (>60) mL/min BUN/Creatinine Ratio 25.0 H (6-22) Glucose 104 H (70-100) mg/dL Calcium 9.6 (8.4-10.2) mg/dL Total Bilirubin 0.5 (0.2-1.3) mg/dL AST 124 H (14-36) IU/L ALT 146 H (<35) IU/L Alkaline Phosphatase 48 (38-126) U/L Total Creatine Kinase 98 (30-135) U/L Troponin I < 0.012 (0.01-0.034) ng/mL Total Protein 7.7 (6.3-8.2) g/dL Albumin 4.9 (3.5-5.0) g/dL Globulin 2.8 (1.7-4.1) g/dL Albumin/Globulin Ratio 1.8 (1.0-2.8) Lipase 301 H (23-300) U/L SARS-CoV-2 (PCR) Negative (Negative) Influenza A (RT-PCR) Flu a negative (NEGATIVE) Influenza B (RT-PCR) Flu b negative (NEGATIVE) RSV (PCR) Negative (Negative) Imaging Data Chest x-ray: Radiologist's Impression: [address] [address] XRay Report Signed Patient: Rica Arriola MR#: [id number] : 1985 Acct:[id number] Age/Sex: 38 / F Date of Service: 01/09/24 Loc: ED Accession Number: [id number] Procedure: XR chest 1V Ordering Provider: Arnold Ann D.O. PROCEDURE: XR CHEST 1V INDICATIONS: Chest pain TECHNIQUE: One view of the chest was acquired. COMPARISON: [facility], CR, XR CHEST 1V, 04/27/2021, 12:25. FINDINGS: Surgical changes and devices: None. Lungs and pleura: Lungs are clear. No pleural effusions or pneumothorax. Mediastinum: Mediastinal contours appear normal. Heart size is normal. Bones and chest wall: No suspicious bony lesions. Overlying soft tissues appear unremarkable. IMPRESSION: No acute pulmonary process. Dictated by: Heidi Delacruz M.D. on 01/09/2024 at 16:30 Approved by: Heidi Delacruz M.D. on 01/09/2024 at 16:30 CT scan - abdomen/pelvis: Radiologist's Impression: [place] [address] CT Scan Report Signed Patient: Rica Arriola MR#: [id number] : 1985 Acct:[id number] Age/Sex: 38 / F Date of Service: 01/09/24 Loc: ED Accession Number: [id number] Procedure: CT head/brain wo con Ordering Provider: Arnold Ann D.O. PROCEDURE: CT HEAD/BRAIN WO CON INDICATIONS: Nine days of headache with facial numbness TECHNIQUE: Noncontrast 4.5 mm thick angled axial sections acquired from the foramen magnum to the vertex, with coronal and sagittal reformats. For radiation dose reduction, the following was used: automated exposure control, adjustment of mA and/or kV according to patient size. COMPARISON: [facility], CT, CT HEAD/BRAIN WO CON, 11/07/2018, 12:29. FINDINGS: Image quality: Diagnostic. CSF spaces: Basal cisterns are patent. No extra-axial fluid collections. Ventricles are normal in size and shape. Brain: No midline shift. No intracranial masses or hemorrhage. Tucker-white matter interface is normal. Skull and face: Calvarium and visualized facial bones are intact, without suspicious lesions. Sinuses: Incidental note made of the presence of a prominent right maxillary sinus Soledad cell. Prominent right maxillary sinus mucosal retention cysts. Otherwise paranasal sinuses and mastoids as visualized are clear.. IMPRESSION: Right maxillary sinus Soledad cell, prominent right maxillary sinus mucous retention cyst. No acute intracranial pathology. Dictated by: Adin Sultana M.D. on 01/09/2024 at 16:50 Approved by: Adin Sultana M.D. on 01/09/2024 at 16:51 [facility] Narrative Medical decision making narrative: 38-year-old female , 9 days duration bitemporal headache, vicelike, atraumatic, afebrile, sirs screen negative. Transient relief with wzfr-dsv-zdanqka Tylenol Motrin. No photophobia, no neck tenderness. Nonfocal neuro exam. She did want imaging, CT head ordered. Transient chest pain noted prior, EKG unremarkable. Chest x-ray negative. COVID/flu swab results pending. Chest x-ray no acute changes. CT head no acute changes, mucous retention cyst noted, unclear that this would be related to her current headache pain. But she was informed of the finding. We discussed headache cocktail type medications to include possible Toradol, Decadron, Compazine, Benadryl, fluids, she declined all these. She would rather continue using Tylenol and Motrin for now. Discharge Plan Departure Patient Disposition: Home Clinical Impression: Headache, Mucous retention cyst of maxillary sinus Instructions: DI for Headache Activity Restrictions/Additional Instructions: Bilateral vicelike headache for 9 days, no injury, no fever on triage, transient improvement with wmsx-mpk-iowusgm Tylenol and Motrin type medications, interested in imaging. CT head showed no acute process, there was incidental finding of a right maxillary sinus mucous retention cyst, unclear if this is a cause or related in any way to headache symptoms. We discussed various treatments that might include Toradol, Compazine, Decadron, Benadryl, fluids, declined for now. Chest x-ray unremarkable. Could consider COVID/flu testing but symptoms longer than any. For antiviral therapies. Continue Tylenol/ibuprofen byex-jkc-hjcpjre medications for now. Follow up further with your regular provider. Return to this/nearest emergency department for any change worsening symptoms or any concerns prior Prescriptions: No Action prenat.vits,kendall,dph-ujrz-nzivm Tablet 1 tab PO DAILY folic acid 1 mg tablet 1 mg PO DAILY biotin PO fenofibric acid (choline) PO cholecalciferol (vitamin D3) PO calcium acetate PO pantoprazole [Protonix] 40 mg tablet,delayed release (DR/EC) 40 mg PO DAILY Qty: 30 2RF ibuprofen 600 mg tablet 600 mg PO Q6H PRN (Reason: pain) Qty: 30 2RF Referrals: Jim Clement MD [Primary Care Provider] - Stand Alone Forms: Patient Portal/API
[2024-01-09 20:10] LABS: Influenza A - CEPHEID Flu A NEGATIVE (NEGATIVE); Influenza B - CEPHEID Flu B NEGATIVE (NEGATIVE); Respiratory Syncytial Virus Negative (Negative)
[2024-01-09 20:11] LABS: COVID-19 CEPHEID 4-PLEX PCR Negative (Negative)
[2024-01-09 20:30] VITALS: BP 128/68; PULSE 95; RESP 14; O2SAT 95
== END 2024-01-09 20:34 | disposition home or self-care (01) ==
PROVIDERS: Emergency Medicine; Emergency Provider Emergency Medicine; PCP Family Medicine
DX: R51.9 Headache, unspecified (principal); J34.1 Cyst and mucocele of nose and nasal sinus; R03.0 Elevated blood-pressure reading, without diagnosis of hypertension
CPT/HCPCS: 87635; 87400 ×2; 87420; 0241U; 36415; 70450; 71045; 80053; 82550; 83690; 84484; 85025; 93005; 99284

== ENCOUNTER → 2024-03-05 11:32 | Outpatient (CLI) | payer OTHER, MEDICAID, SELFPAY ==
[2024-03-05 13:11] LABS: Hemoglobin A1C% w Est Avg Glu 6.1 % (4.0-6.0)
[2024-03-05 13:37] LABS: Cholesterol 202 mg/dL (140-199); HDL Cholesterol 52 mg/dL (40-60); LDL Cholesterol Calculated 124 mg/dL (<100); Triglycerides 129 mg/dL (35-150)
[2024-03-05 14:03] LABS: TSH w/ Reflex to FT4 1.69 uIU/mL (0.47-4.68)
== END ==
PROVIDERS: PCP Family Medicine; Referring Provider Family Medicine; Visit Provider Family Medicine
DX: R73.09 Other abnormal glucose (principal); F41.9 Anxiety disorder, unspecified; E66.3 Overweight
CPT/HCPCS: 36415; 80061; 83036; 84443

== ENCOUNTER → 2024-08-11 10:06 | Outpatient (CLI) | payer OTHER, SELFPAY ==
[2024-08-11 11:09] LABS: Alanine Aminotransferase 114 IU/L (<35); Albumin 4.8 g/dL (3.5-5.0); Albumin Globulin Ratio 1.9 (1.0-2.8); Alkaline Phosphatase 40 U/L (38-126); Aspartate Aminotransferase 65 IU/L (14-36); Bilirubin Total 0.3 mg/dL (0.2-1.3); Blood Urea Nitrogen 12 mg/dL (7-17); Calcium 10.1 mg/dL (8.4-10.2); Carbon Dioxide 25 mmol/L (22-32); Chloride 103 mmol/L (98-107); Estimated Glomerular Filt Rate > 60 mL/min (>60); Globulin 2.5 g/dL (1.7-4.1); Glucose 112 mg/dL (70-100); HEMOLYSIS < 15 (0-50); Potassium 4.7 mmol/L (3.4-5.1); Sodium 137 mmol/L (137-145); Total Protein 7.3 g/dL (6.3-8.2)
[2024-08-11 11:32] LABS: HEMOLYSIS < 15 (0-50); Iron 51 ug/dL (37-170)
[2024-08-11 11:39] LABS: Hepatitis B Surface Antigen NEGATIVE s/c (NEGATIVE)
[2024-08-11 11:43] LABS: Percent Iron Saturation 14 % (15-50); Total Iron Binding Capacity 364 ug/dL (265-497); Transferrin 347 mg/dL (206-381)
[2024-08-11 12:02] LABS: TSH w/ Reflex to FT4 1.69 uIU/mL (0.47-4.68)
[2024-08-11 13:07] LABS: Hemoglobin A1C% w Est Avg Glu 5.8 % (4.0-6.0)
[2024-08-12 07:39] LABS: Hepatitis B Surf Ab Qualitativ Reactive (.)
[2024-08-13 13:36] LABS: Smooth Muscle Antibody 38 Units (0-19)
== END ==
PROVIDERS: PCP Family Medicine; Referring Provider Family Medicine; Visit Provider Family Medicine
DX: R74.8 Abnormal levels of other serum enzymes (principal); F43.29 Adjustment disorder with other symptoms; R73.9 Hyperglycemia, unspecified
CPT/HCPCS: 36415; 80053; 83036; 83540; 83550; 84443; 86015; 86706; 87340

== ENCOUNTER → 2024-09-30 12:14 | Outpatient (CLI) | payer OTHER, SELFPAY ==
--- NOTE | 2024-09-30 12:15 | DI.MG.S_ITS ---
MM diagnostic mammo implant BI, US breast LT limited: 09/30/2024 BI-RADS: 1 CLINICAL: 38-year old female for bilateral diagnostic mammogram and left diagnostic breast ultrasound. Tyrer-Cuzick lifetime risk of 16.1%. Current reported family history of breast cancer: mother. The patient reports a palpable abnormality (1 year) in the left breast. The patient has bilateral implants. PRIOR EXAMS 04/29/2020. MAMMOGRAPHY TECHNIQUE: 2D and 3D (tomosynthesis) digital mammographic views obtained, with additional images as needed for full coverage. Current study was also evaluated with a Computer Aided Detection (CAD) system. ULTRASOUND TECHNIQUE Real-time rivero scale imaging of the area of clinical interest was performed with image documentation. TARGETED Left Breast Ultrasound: Real-time ultrasound exam was performed focused to area of clinical and/or imaging concern. DENSITY C. The breasts are heterogeneously dense, which may obscure small masses. IMPLANTS There is a retropectoral silicone implant. MAMMOGRAPHY FINDINGS Right: Silicone implant on the right. No suspicious mass, asymmetry, microcalcification, or other abnormality seen. Left: Upper Outer Quadrant, Posterior depth: A skin marker was placed in the area of concern, and no mammographic abnormalities are identified or to account for concern by the patient of a palpable lump. Silicone implant on the left. No suspicious mass, asymmetry, microcalcification, or other abnormality seen. ULTRASOUND FINDINGS Left: Upper Outer at 2:00, 12 cm from nipple: There is no suspicious sonographic finding to account for concern by the patient of a palpable lump. IMPRESSION: * No evidence of malignancy. RECOMMENDATIONS Left * Clinical follow-up is recommended, and further management of palpable abnormalities or other focal signs or symptoms should be based on the results of clinical evaluation. If palpable abnormality or other concerning symptom persists or progresses, further clinical evaluation should be considered. Bilateral * Annual screening mammography beginning at age 40. OVERALL ASSESSMENT CATEGORY BI-RADS-1: Negative. The [employer] recommends annual screening mammography beginning at age 40 for women with average risk of breast cancer. ELECTRONICALLY SIGNED: Angie Baez M.D. on 09/30/2024 at 03:59:55 PM PT Interpreting Station ID: [id number]
== END ==
PROVIDERS: PCP Family Medicine; Referring Provider Family Medicine; Visit Provider Family Medicine
DX: N63.10 Unspecified lump in the right breast, unspecified quadrant (principal); N63.20 Unspecified lump in the left breast, unspecified quadrant; R92.333 Mammographic heterogeneous density, bilateral breasts; Z98.82 Breast implant status; Z80.3 Family history of malignant neoplasm of breast
CPT/HCPCS: 76642; 77066; G0279

== ENCOUNTER 2024-10-07 15:06 | Emergency (ER) | payer OTHER, SELFPAY ==
[2024-10-07 15:18] VITALS: BP 163/94; PULSE 110; RESP 18; TEMP 37.1; O2SAT 100; BMI 38.6
[2024-10-07 15:58] LABS: Add Manual Diff / Slide Review NO; Basophils Absolute Auto 100 /uL (0-100); Basophils Percent Auto 0.6 % (0-2); Eosinophils Absolute Auto 100 /uL (0-450); Eosinophils Percent Auto 0.8 % (2-4); Hematocrit 39.9 % (36-46); Hemoglobin 13.5 g/dL (12.0-16.0); Lymphocytes Absolute Auto 1800 /uL (1100-4500); Lymphocytes Percent Auto 15.9 % (25-40); Mean Corpuscular HGB Conc 33.9 % (30-36); Mean Corpuscular Hemoglobin 29.5 PG (26-34); Mean Corpuscular Volume 86.9 fL (80-100); Monocytes Absolute Auto 700 /uL (0-900); Monocytes Percent Auto 5.7 % (3-14); Neutrophils Absolute Auto 8800 /uL (1500-7000); Platelet Count 359 X10^3/uL (150-400); Red Blood Cell Count 4.59 X10^6/uL (4.0-5.2); White Blood Cell Count 11.4 X10^3/uL (4.5-11.0)
[2024-10-07 16:12] LABS: COVID-19 CEPHEID 4-PLEX PCR Negative (Negative); Influenza A - CEPHEID Flu A NEGATIVE (NEGATIVE); Influenza B - CEPHEID Flu B NEGATIVE (NEGATIVE); Respiratory Syncytial Virus Negative (Negative)
[2024-10-07 16:13] LABS: Alanine Aminotransferase 34 IU/L (<35); Albumin 5.2 g/dL (3.5-5.0); Albumin Globulin Ratio 1.4 (1.0-2.8); Alkaline Phosphatase 54 U/L (38-126); Aspartate Aminotransferase 35 IU/L (14-36); Bilirubin Total 0.8 mg/dL (0.2-1.3); Blood Urea Nitrogen 9 mg/dL (7-17); Calcium 10.4 mg/dL (8.4-10.2); Carbon Dioxide 19 mmol/L (22-32); Chloride 104 mmol/L (98-107); Estimated Glomerular Filt Rate > 60 mL/min (>60); Globulin 3.6 g/dL (1.7-4.1); Glucose 118 mg/dL (70-100); HEMOLYSIS < 15 (0-50); Lipase 96 U/L (23-300); Potassium 4.1 mmol/L (3.4-5.1); Sodium 138 mmol/L (137-145); Total Protein 8.8 g/dL (6.3-8.2)
[2024-10-07 17:48] LABS: Bacteria Urine Occasional (0-1); Culture Indicated Urine Cult Not Indicated; RBC Urine 1-5/HPF (0-5/HPF); Squamous Epithelial Cell Urine 0-1 /HPF (0-5/HPF); Urine Volume 10mL (spun); WBC Urine None Seen (0-5/HPF)
[2024-10-07] MEDS: ACETAMINOPHEN 325 MG TABLET 975 MG PO (18:12)
--- NOTE | 2024-10-07 18:12 | ED.ABDPAIN ---
HPI - Abdominal Pain <IJEOMA Sepulveda Last Filed: 10/07/24 20:27> General Chief Complaint: Abdominal Pain Stated Complaint: sent by [facility], back and abd px, MARTINEZ, fever x 14days Time Seen by Provider: 10/07/24 17:49 Source: patient Mode of arrival: EMS History of Present Illness HPI narrative: Ms. Arriola is a pleasant 38-year-old female with a past medical history of fibromyalgia, currently being evaluated for possible autoimmune hepatitis who presents to the emergency department for body aches, right-sided headache/dental pain, lower abdominal cramping and low back pain associated with ?low-grade fevers? x2 weeks. Patient initially presented to the walk-in clinic however due to her 04/23 diffuse body pain was sent to the emergency department for further evaluation. Patient states she had a colonoscopy performed 2 weeks ago and shortly after that she has since had severe pain in all of her joints, severe pain in the right side of her face and teeth, lower abdominal cramping that feels like period cramps however her period just ended, low back pain, sore throat. She has been alternating ibuprofen and Tylenol without improvement in symptoms. She has been having urinary frequency but no dysuria. She is having normal bowel movements. Related Data Previous Rx's Medication Instructions Recorded bupropion HCl 300 mg 24 hr tablet, 300 mg PO QAM #90 tabs 08/11/24 extended release (Wellbutrin XL) amoxicillin 875 mg-potassium 1 tab PO BID 7 days #14 tabs 10/07/24 clavulanate 125 mg tablet fluticasone propionate 50 1 spray intranasal DAILY 30 days 10/07/24 mcg/actuation nasal #16 grams spray,suspension (Flonase Allergy Relief) naproxen 500 mg tablet 500 mg PO BID PRN pain #20 tabs 10/07/24 Allergies Allergy/AdvReac Type Severity Reaction Status Date / Time oxycodone AdvReac Mild Vomiting Verified 10/07/24 15:30 tramadol AdvReac Vomiting Verified 10/07/24 15:30 Review of Systems <Ludivina Patiño PA-C - Last Filed: 10/07/24 20:27> Review of Systems ROS Unobtainable: All systems reviewed & are unremarkable except as noted in HPI and below Patient History <Ludivina Patiño PA-C - Last Filed: 10/07/24 20:27> Medical History Elevated liver enzymes Gestational diabetes Benign tumor of spinal meninges Fibromyalgia Surgical History Hx of abdominoplasty Hx of breast augmentation Hx of removal of ovary Family History Mother Diabetes mellitus Hypertension Breast cancer Heart disease Father Diabetes mellitus Hypertension Heart disease Small cell lung cancer in adult Social History marital status: unmarried,single details: s/o travels, home ~1 week every few months number of children: 3 household members: children lives independently: Yes housing: house pets and animals: Yes (2 dogs and 1 cat, does not manage litter box.) education level: college occupational status: employed current occupational exposures/hazards: Yes (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.) special nasim needs: No travel history: over 6 months ago seatbelt use: always helmet use: Yes water heater temp set < 120 deg: Yes (Will check and adjust if needed) working smoke detector in home: Yes fire extinguisher in home: Yes carbon monox detector in home: Yes firearms in home: Yes firearms unloaded and locked: Yes do you feel safe at home: Yes Smoking Status: Never smoker second hand exposure: No alcohol intake: former substance use type: marijuana during the past year weight has: increased > 10 lbs well-balanced diet: daily or most days daily servings fruits/ve-4 caffeine: Yes Type(s) of exercise: none Smoking Status: Never smoker alcohol intake frequency: a few times a month Exam <Ludivina Patiño PA-C - Last Filed: 10/07/24 20:27> Narrative Exam Narrative: GENERAL: 38 year old patient appears stated age. Overweight patient, in no acute distress, tearful. HEAD: Atraumatic. Normocephalic. EYES: PERRL. Extraocular motions intact. False upper eyelashes. No scleral icterus. No injection or drainage. ENT: TMs WNL BL, clear canals. Slight tenderness to palpation R maxilary sinuses. Nose without bleeding, purulent drainage. Throat without erythema, tonsillar hypertrophy or exudate. Airway patent. NECK: Trachea midline. Cervical ROM intact. CARDIOVASCULAR: Increased rate and rhythm. RESPIRATORY: ?Nonlabored respirations. ?Speaking in clear, full sentences. ?Clear to auscultation. Breath sounds equal bilaterally. No wheezes, rales, or rhonchi. ? GASTROINTESTINAL: Diffuse tenderness to lower abd, nonfocal. Normal BS. No rebound or guarding. EXTREMITIES: No LE edema. BACK: No CVA tenderness. NEURO: AOx3. ?Clear speech. ?Moves all 4 extremities appropriately. SKIN: No rash or erythema of visible areas Initial Vital Signs Initial Vital Signs: Vital Signs Temperature 98.8 F 10/07/24 15:18 Pulse Rate 110 H 10/07/24 15:18 Respiratory Rate 18 10/07/24 15:18 Blood Pressure 163/94 H 10/07/24 15:18 Pulse Oximetry 100 10/07/24 15:18 Oxygen Delivery Method Room Air 10/07/24 15:18 <Hazel So DO - Last Filed: 10/08/24 01:35> Initial Vital Signs Initial Vital Signs: Vital Signs Temperature 98.8 F 10/07/24 15:18 Pulse Rate 110 H 10/07/24 15:18 Respiratory Rate 18 10/07/24 15:18 Blood Pressure 163/94 H 10/07/24 15:18 Pulse Oximetry 100 10/07/24 15:18 Oxygen Delivery Method Room Air 10/07/24 15:18 Course <Ludivina Patiño PA-C - Last Filed: 10/07/24 20:27> Orders Ordered: ED Orders 10/07/24 18:23 CT abdomen pelvis w con Stat XR chest 2V Stat 10/07/24 18:24 Strep Grp A by PCR Rapid Stat Discontinued Medications Acetaminophen (Acetaminophen 325 Mg Tablet) 975 mg PO NOW ONE Stop: 10/07/24 17:48 Last Admin: 10/07/24 18:12 Dose: 975 mg Documented By: CELSA Amoxicillin/Clavulanate Potassium (Amoxicillin/Clav 875/125 Mg) 1 tab PO NOW ONE Stop: 10/07/24 20:16 Last Admin: 10/07/24 20:35 Dose: 1 tab Documented By: TRINO Sodium Chloride (Normal Saline 0.9%) 1,000 mls @ 1,000 mls/hr IV BOLUS ONE Stop: 10/07/24 19:22 Last Infusion: 10/07/24 20:36 Dose: Infused Documented By: Admin: 10/07/24 19:01 Dose: 1,000 mls/hr Documented By: CELSA Ketorolac Tromethamine (Ketorolac 30 Mg/Ml Vial) 15 mg IV NOW ONE Stop: 10/07/24 18:24 Last Admin: 10/07/24 19:05 Dose: 15 mg Documented By: CELSA Ketorolac Tromethamine (Ketorolac 30 Mg/Ml Vial) 15 mg IV NOW ONE Stop: 10/07/24 20:20 Last Admin: 10/07/24 20:35 Dose: 15 mg Documented By: TRINO Morphine Sulfate (Morphine 4 Mg/Ml Inj) 4 mg IV NOW ONE Stop: 10/07/24 18:24 Last Admin: 10/07/24 19:06 Dose: 4 mg Documented By: CELSA Ondansetron HCl (Ondansetron 4 Mg/2 Ml Inj) 4 mg IV NOW PRN PRN Reason: Nausea And Vomiting Ondansetron HCl (Ondansetron 4 Mg Odt) 4 mg PO NOW PRN PRN Reason: Nausea And Vomiting Ondansetron HCl (Ondansetron 4 Mg/2 Ml Inj) 4 mg IV NOW ONE Stop: 10/07/24 18:24 Last Admin: 10/07/24 19:06 Dose: 4 mg Documented By: CELSA Vital Signs Vital signs: Vital Signs - 8 hr 10/07/24 19:17 10/07/24 19:17 10/07/24 19:30 Pulse Rate 97 H 95 H Respiratory Rate Blood Pressure 122/74 Pulse Oximetry 93 94 Oxygen Delivery Method 10/07/24 19:30 10/07/24 20:00 10/07/24 20:30 Pulse Rate 92 H 92 H Respiratory Rate 16 Blood Pressure 121/70 119/66 115/64 Pulse Oximetry 96 95 Oxygen Delivery Method Room Air <Hazel So DO - Last Filed: 10/08/24 01:35> Orders Ordered: ED Orders 10/07/24 18:23 CT abdomen pelvis w con Stat XR chest 2V Stat 10/07/24 18:24 Strep Grp A by PCR Rapid Stat Discontinued Medications Acetaminophen (Acetaminophen 325 Mg Tablet) 975 mg PO NOW ONE Stop: 10/07/24 17:48 Last Admin: 10/07/24 18:12 Dose: 975 mg Documented By: CELSA Amoxicillin/Clavulanate Potassium (Amoxicillin/Clav 875/125 Mg) 1 tab PO NOW ONE Stop: 10/07/24 20:16 Last Admin: 10/07/24 20:35 Dose: 1 tab Documented By: TRINO Sodium Chloride (Normal Saline 0.9%) 1,000 mls @ 1,000 mls/hr IV BOLUS ONE Stop: 10/07/24 19:22 Last Infusion: 10/07/24 20:36 Dose: Infused Documented By: Admin: 10/07/24 19:01 Dose: 1,000 mls/hr Documented By: CELSA Ketorolac Tromethamine (Ketorolac 30 Mg/Ml Vial) 15 mg IV NOW ONE Stop: 10/07/24 18:24 Last Admin: 10/07/24 19:05 Dose: 15 mg Documented By: CELSA Ketorolac Tromethamine (Ketorolac 30 Mg/Ml Vial) 15 mg IV NOW ONE Stop: 10/07/24 20:20 Last Admin: 10/07/24 20:35 Dose: 15 mg Documented By: TRINO Morphine Sulfate (Morphine 4 Mg/Ml Inj) 4 mg IV NOW ONE Stop: 10/07/24 18:24 Last Admin: 10/07/24 19:06 Dose: 4 mg Documented By: CELSA Ondansetron HCl (Ondansetron 4 Mg/2 Ml Inj) 4 mg IV NOW PRN PRN Reason: Nausea And Vomiting Ondansetron HCl (Ondansetron 4 Mg Odt) 4 mg PO NOW PRN PRN Reason: Nausea And Vomiting Ondansetron HCl (Ondansetron 4 Mg/2 Ml Inj) 4 mg IV NOW ONE Stop: 10/07/24 18:24 Last Admin: 10/07/24 19:06 Dose: 4 mg Documented By: CELSA Vital Signs Vital signs: Vital Signs - 8 hr 10/07/24 19:17 10/07/24 19:17 10/07/24 19:30 Pulse Rate 97 H 95 H Respiratory Rate Blood Pressure 122/74 Pulse Oximetry 93 94 Oxygen Delivery Method 10/07/24 19:30 10/07/24 20:00 10/07/24 20:30 Pulse Rate 92 H 92 H Respiratory Rate 16 Blood Pressure 121/70 119/66 115/64 Pulse Oximetry 96 95 Oxygen Delivery Method Room Air MDM - Abdominal Pain <Ludivina Patiño PA-C - Last Filed: 10/07/24 20:27> Medical Records Attestation: I reviewed the patient's medical records. Medical records narrative: Patient emergency department 01/09/2024 for headache was incidentally found to have mucous retention cyst of maxillary sinus on right. Lab Data 10/07/24 15:47 10/07/24 15:47 Labs: Lab Results 10/07/24 10/07/24 10/07/24 Range/Units 15:28 15:47 16:34 WBC 11.4 H (4.5-11.0) X10^3/uL RBC 4.59 (4.0-5.2) X10^6/uL Hgb 13.5 (12.0-16.0) g/dL Hct 39.9 (36-46) % MCV 86.9 (80-100) fL MCH 29.5 (26-34) PG MCHC 33.9 (30-36) % RDW 13.0 (11.6-14.8) % Plt Count 359 (150-400) X10^3/uL Neut % (Auto) 77.0 H (50-75) % Lymph % (Auto) 15.9 L (25-40) % [place]uming % (Auto) 5.7 (3-14) % Eos % (Auto) 0.8 L (2-4) % Baso % (Auto) 0.6 (0-2) % Neut # (Auto) 8800 H (0631-9408) /uL Lymph # (Auto) 1800 (8881-7716) /uL [place]uming # (Auto) 700 (0-900) /uL Eos # (Auto) 100 (0-450) /uL Baso # (Auto) 100 (0-100) /uL Sodium 138 (137-145) mmol/L Potassium 4.1 (3.4-5.1) mmol/L Chloride 104 (98-107) mmol/L Carbon Dioxide 19 L (22-32) mmol/L BUN 9 (7-17) mg/dL Creatinine 0.82 (0.52-1.04) mg/dL Estimated GFR > 60 (>60) mL/min BUN/Creatinine Ratio 11.0 (6-22) Glucose 118 H (70-100) mg/dL Calcium 10.4 H (8.4-10.2) mg/dL Total Bilirubin 0.8 (0.2-1.3) mg/dL AST 35 (14-36) IU/L ALT 34 (<35) IU/L Alkaline Phosphatase 54 (38-126) U/L Total Protein 8.8 H (6.3-8.2) g/dL Albumin 5.2 H (3.5-5.0) g/dL Globulin 3.6 (1.7-4.1) g/dL Albumin/Globulin Ratio 1.4 (1.0-2.8) Lipase 96 (23-300) U/L Urine RBC 1-5/hpf (0-5/HPF) Urine WBC None seen (0-5/HPF) Ur Squamous Epith Cells 0-1 /hpf (0-5/HPF) Urine Bacteria Occasional (0-1) (None) Ur Culture Indicated? Cult not indicated Vol Urine Centrifuged 10ml (spun) SARS-CoV-2 (PCR) Negative (Negative) Influenza A (RT-PCR) Flu a negative (NEGATIVE) Influenza B (RT-PCR) Flu b negative (NEGATIVE) RSV (PCR) Negative (Negative) Group A Strep (PCR) (Negative) 10/07/24 Range/Units 18:24 WBC (4.5-11.0) X10^3/uL RBC (4.0-5.2) X10^6/uL Hgb (12.0-16.0) g/dL Hct (36-46) % MCV (80-100) fL MCH (26-34) PG MCHC (30-36) % RDW (11.6-14.8) % Plt Count (150-400) X10^3/uL Neut % (Auto) (50-75) % Lymph % (Auto) (25-40) % Cuming % (Auto) (3-14) % Eos % (Auto) (2-4) % Baso % (Auto) (0-2) % Neut # (Auto) (9700-9522) /uL Lymph # (Auto) (5217-7132) /uL Cuming # (Auto) (0-900) /uL Eos # (Auto) (0-450) /uL Baso # (Auto) (0-100) /uL Sodium (137-145) mmol/L Potassium (3.4-5.1) mmol/L Chloride (98-107) mmol/L Carbon Dioxide (22-32) mmol/L BUN (7-17) mg/dL Creatinine (0.52-1.04) mg/dL Estimated GFR (>60) mL/min BUN/Creatinine Ratio (6-22) Glucose (70-100) mg/dL Calcium (8.4-10.2) mg/dL Total Bilirubin (0.2-1.3) mg/dL AST (14-36) IU/L ALT (<35) IU/L Alkaline Phosphatase (38-126) U/L Total Protein (6.3-8.2) g/dL Albumin (3.5-5.0) g/dL Globulin (1.7-4.1) g/dL Albumin/Globulin Ratio (1.0-2.8) Lipase (23-300) U/L Urine RBC (0-5/HPF) Urine WBC (0-5/HPF) Ur Squamous Epith Cells (0-5/HPF) Urine Bacteria (None) Ur Culture Indicated? Vol Urine Centrifuged SARS-CoV-2 (PCR) (Negative) Influenza A (RT-PCR) (NEGATIVE) Influenza B (RT-PCR) (NEGATIVE) RSV (PCR) (Negative) Group A Strep (PCR) Negative (Negative) Point of care testing: Point of Care Testing Test Results Negative Urine Dip Bedside Urine Glucose Negative Bedside Urine Bilirubin - Negative Bedside Urine Ketone + 15 Urine Specific [place] 1.015 Bedside Urine Occult Blood ++ Bedside Urine pH 6.0 Bedside Urine Protein - Negative Bedside Urine Urobilinogen - Negative Bedside Urine Nitrite - Negative Bedside Urine Leukocytes - Negative Esterase Imaging Data Chest x-ray: Radiologist's Impression: PROCEDURE: XR CHEST 2V INDICATIONS: body aches fever 2 weeks TECHNIQUE: 2 views of the chest were acquired. COMPARISON: [facility], , XR CHEST 1V, 01/09/2024, 15:50. FINDINGS: Surgical changes and devices: None. Lungs and pleura: Lungs are clear. No pleural effusions or pneumothorax. Mediastinum: Mediastinal contours are normal. Heart size is normal. Bones and chest wall: No suspicious bony abnormalities. Soft tissues appear unremarkable. IMPRESSION: No acute cardiopulmonary abnormality is seen. CT scan - abdomen/pelvis: Radiologist's Impression: PROCEDURE: CT ABDOMEN PELVIS W CON INDICATIONS: low abd pain crmaping low back pain TECHNIQUE: After the administration of intravenous contrast, axial sections acquired from the lung bases to the pubic symphysis. Coronal and sagittal reformats were performed. For radiation dose reduction, the following was used: automated exposure control, adjustment of mA and/or kV according to patient size. COMPARISON: None. FINDINGS: Image quality: Diagnostic Lower chest: Lung bases are unremarkable. There are breast implants. Normal heart size. Liver: Unremarkable Gallbladder and biliary system: Unremarkable, nondilated Pancreas: No ductal dilation Spleen: Nonenlarged Adrenals: 1.4 cm right adrenal nodule Kidneys: No solid renal mass. Punctate left nonobstructing calculi are seen. No hydronephrosis. Vessels and lymph nodes: The main portal vein is patent. No abdominal aortic aneurysm. No pathologic lymphadenopathy by size criteria. Bowel and peritoneum: No small bowel obstruction. Overall moderate degree of fecal loading is seen. Long appendix without dilation. Body wall: Possible postsurgical changes Pelvis: Enlarged left ovary. Possible uterine fibroid. Bones: Asymmetric right hip degenerative changes, greater than expected for age. Lumbosacral mild degenerative changes also present. IMPRESSION: Asymmetric enlargement of the left ovary. Correlate with location of symptoms and consider ultrasound to further evaluate. Suspect fibroid uterus is also seen. No small bowel obstruction. Moderate fecal loading. Nondilated appendix. 1.4 cm right adrenal nodule probably an adenoma. This could be confirmed with adrenal protocol imaging. Mild degenerative changes of the lower back. Greater than expected right hip degenerative changes for age. Other findings above. [facility] Narrative Medical decision making narrative: 38-year-old female with a past medical history of fibromyalgia, currently being evaluated for possible autoimmune hepatitis who presents to the emergency department for body aches, right-sided headache/dental pain, lower abdominal cramping and low back pain associated with ?low-grade fevers? x2 weeks. Differential diagnosis includes but is not limited to viral syndrome, rheumatologic condition, fibromyalgia flare, rheumatoid arthritis, sinusitis, dental infection, pneumonia, UTI, pyelonephritis, strep pharyngitis, etc. On exam patient is nontoxic appearing, she is tearful due to full body pain, heart rate mildly elevated. She is reporting pain in all of her joints but most significant in right sinuses, right-sided headache, diffuse lower abdominal cramping. Will abd check labs, viral swab, strep swab, chest x-ray, abdomen pelvis CT, UA. We will treat with Toradol, Tylenol, morphine, Zofran, fluids. Labs reveal WBC count elevated at 11.4, normal hemoglobin hematocrit, platelets 359, neutrophils 77%. Normal electrolytes sodium 138 potassium 4.1. BUN 9 creatinine 0.82. Glucose 118. Calcium slightly elevated at 10.4. Normal AST ALT. UA reveals 1-5 RBCs, occasional squamous epithelial cells, occasional bacteria, no signs of infection, culture not indicated. Negative viral swab. Imaging reveals negative chest x-ray. CT abdomen and pelvis reveals asymmetric enlargement of left ovary. Suspect fibroid uterus is also seen. No small bowel obstruction. Moderate fecal loading. Nondilated appendix. 1.4 cm right adrenal nodule probably an adenoma. Mild degenerative changes of the low back. Greater than expected right hip degenerative changes for age. Imaging results were printed and discussed with the patient in detail including all incidental findings. At this time plan is to treat patient with Augmentin b.i.d. x7 days for right sinusitis, in addition to Flonase, naproxen for joint and lower abdominal cramping pain. Advised patient follow up with PCP for further evaluation, more advanced imaging of adrenal nodule. Discussed strict ED return precautions. Patient is feeling much better, she verbalized understanding of all information agreeable to plan. She is stable for discharge home. <Hazel So, DO - Last Filed: 10/08/24 01:35> Lab Data Labs: Lab Results 10/07/24 10/07/24 10/07/24 Range/Units 15:28 15:47 16:34 WBC 11.4 H (4.5-11.0) X10^3/uL RBC 4.59 (4.0-5.2) X10^6/uL Hgb 13.5 (12.0-16.0) g/dL Hct 39.9 (36-46) % MCV 86.9 (80-100) fL MCH 29.5 (26-34) PG MCHC 33.9 (30-36) % RDW 13.0 (11.6-14.8) % Plt Count 359 (150-400) X10^3/uL Neut % (Auto) 77.0 H (50-75) % Lymph % (Auto) 15.9 L (25-40) % [place] % (Auto) 5.7 (3-14) % Eos % (Auto) 0.8 L (2-4) % Baso % (Auto) 0.6 (0-2) % Neut # (Auto) 8800 H (3189-8170) /uL Lymph # (Auto) 1800 (6543-4709) /uL [place] # (Auto) 700 (0-900) /uL Eos # (Auto) 100 (0-450) /uL Baso # (Auto) 100 (0-100) /uL Sodium 138 (137-145) mmol/L Potassium 4.1 (3.4-5.1) mmol/L Chloride 104 (98-107) mmol/L Carbon Dioxide 19 L (22-32) mmol/L BUN 9 (7-17) mg/dL Creatinine 0.82 (0.52-1.04) mg/dL Estimated GFR > 60 (>60) mL/min BUN/Creatinine Ratio 11.0 (6-22) Glucose 118 H (70-100) mg/dL Calcium 10.4 H (8.4-10.2) mg/dL Total Bilirubin 0.8 (0.2-1.3) mg/dL AST 35 (14-36) IU/L ALT 34 (<35) IU/L Alkaline Phosphatase 54 (38-126) U/L Total Protein 8.8 H (6.3-8.2) g/dL Albumin 5.2 H (3.5-5.0) g/dL Globulin 3.6 (1.7-4.1) g/dL Albumin/Globulin Ratio 1.4 (1.0-2.8) Lipase 96 (23-300) U/L Urine RBC 1-5/hpf (0-5/HPF) Urine WBC None seen (0-5/HPF) Ur Squamous Epith Cells 0-1 /hpf (0-5/HPF) Urine Bacteria Occasional (0-1) (None) Ur Culture Indicated? Cult not indicated Vol Urine Centrifuged 10ml (spun) SARS-CoV-2 (PCR) Negative (Negative) Influenza A (RT-PCR) Flu a negative (NEGATIVE) Influenza B (RT-PCR) Flu b negative (NEGATIVE) RSV (PCR) Negative (Negative) Group A Strep (PCR) (Negative) 10/07/24 Range/Units 18:24 WBC (4.5-11.0) X10^3/uL RBC (4.0-5.2) X10^6/uL Hgb (12.0-16.0) g/dL Hct (36-46) % MCV (80-100) fL MCH (26-34) PG MCHC (30-36) % RDW (11.6-14.8) % Plt Count (150-400) X10^3/uL Neut % (Auto) (50-75) % Lymph % (Auto) (25-40) % [place] % (Auto) (3-14) % Eos % (Auto) (2-4) % Baso % (Auto) (0-2) % Neut # (Auto) (8844-9773) /uL Lymph # (Auto) (1806-9401) /uL [place]uming # (Auto) (0-900) /uL Eos # (Auto) (0-450) /uL Baso # (Auto) (0-100) /uL Sodium (137-145) mmol/L Potassium (3.4-5.1) mmol/L Chloride (98-107) mmol/L Carbon Dioxide (22-32) mmol/L BUN (7-17) mg/dL Creatinine (0.52-1.04) mg/dL Estimated GFR (>60) mL/min BUN/Creatinine Ratio (6-22) Glucose (70-100) mg/dL Calcium (8.4-10.2) mg/dL Total Bilirubin (0.2-1.3) mg/dL AST (14-36) IU/L ALT (<35) IU/L Alkaline Phosphatase (38-126) U/L Total Protein (6.3-8.2) g/dL Albumin (3.5-5.0) g/dL Globulin (1.7-4.1) g/dL Albumin/Globulin Ratio (1.0-2.8) Lipase (23-300) U/L Urine RBC (0-5/HPF) Urine WBC (0-5/HPF) Ur Squamous Epith Cells (0-5/HPF) Urine Bacteria (None) Ur Culture Indicated? Vol Urine Centrifuged SARS-CoV-2 (PCR) (Negative) Influenza A (RT-PCR) (NEGATIVE) Influenza B (RT-PCR) (NEGATIVE) RSV (PCR) (Negative) Group A Strep (PCR) Negative (Negative) Point of care testing: Point of Care Testing Test Results Negative Urine Dip Bedside Urine Glucose Negative Bedside Urine Bilirubin - Negative Bedside Urine Ketone + 15 Urine Specific [place] 1.015 Bedside Urine Occult Blood ++ Bedside Urine pH 6.0 Bedside Urine Protein - Negative Bedside Urine Urobilinogen - Negative Bedside Urine Nitrite - Negative Bedside Urine Leukocytes - Negative Esterase Discharge Plan Departure Patient Disposition: Home Clinical Impression: Adrenal nodule, Degenerative joint disease of low back Sinusitis Qualifiers: Sinusitis location: unspecified location Chronicity: acute Recurrence: non-recurrent Qualified Code(s): J01.90 - Acute sinusitis, unspecified Fibroid, uterine Qualifiers: Uterine leiomyoma location: unspecified location Qualified Code(s): D25.9 - Leiomyoma of uterus, unspecified Instructions: DI for Sinus Headache Activity Restrictions/Additional Instructions: Dear Ms. Arriola, Thank you for coming to the emergency department. Today we are treating you for a sinus infection, in addition your CT scan showed a right adrenal nodule, degenerative changes of the low back and right hip, fibroid uterus and enlarged left ovary. It is very important to follow up with the primary care doctor for further management and more advanced imaging of the right adrenal nodule. Please complete the full course of antibiotics and use the prescribed intranasal steroid spray, and pain medication as needed. You may also take acetaminophen/Tylenol with these medications. Please rest, hydrate, return to the emergency department if you develop any new or worsening symptoms or concerns. Please follow up with your primary care doctor within the next 2-3 days for ER follow-up. (If you do not have a PCP you can call [phone]. ?to schedule an appointment with an [facility] Primary Care Provider) IF YOU DEVELOP ANY NEW OR WORSENING SYMPTOMS, RETURN TO THE ER! Please read the attached instructions, they highlight more specific treatments and interventions for you at home. Thank you for letting me participate in your care, Ludivina Patiño PA-C Prescriptions: New amoxicillin-pot clavulanate 875-125 mg tablet 1 tab PO BID 7 Days Qty: 14 0RF naproxen 500 mg tablet 500 mg PO BID PRN (Reason: pain) Qty: 20 0RF fluticasone propionate [Flonase Allergy Relief] 50 mcg/actuation spray,suspension 1 spray intranasal DAILY 30 Days Qty: 16 0RF Rx Instructions: administer into each nostril No Action bupropion HCl [Wellbutrin XL] 300 mg tablet extended release 24 hr 300 mg PO QAM Qty: 90 1RF Rx Instructions: start after completing 150mg pill Referrals: Jim Clement MD [Primary Care Provider] - Stand Alone Forms: Patient Portal/API/Survey ED Sign-out <Hazel So DO - Last Filed: 10/08/24 01:35> Cosign ED Attending Cosignature Attestation: I was available for consultation.
--- NOTE | 2024-10-07 18:23 | DI.CT.S_ITS ---
PROCEDURE: CT ABDOMEN PELVIS W CON INDICATIONS: low abd pain crmaping low back pain TECHNIQUE: After the administration of intravenous contrast, axial sections acquired from the lung bases to the pubic symphysis. Coronal and sagittal reformats were performed. For radiation dose reduction, the following was used: automated exposure control, adjustment of mA and/or kV according to patient size. COMPARISON: None. FINDINGS: Image quality: Diagnostic Lower chest: Lung bases are unremarkable. There are breast implants. Normal heart size. Liver: Unremarkable Gallbladder and biliary system: Unremarkable, nondilated Pancreas: No ductal dilation Spleen: Nonenlarged Adrenals: 1.4 cm right adrenal nodule Kidneys: No solid renal mass. Punctate left nonobstructing calculi are seen. No hydronephrosis. Vessels and lymph nodes: The main portal vein is patent. No abdominal aortic aneurysm. No pathologic lymphadenopathy by size criteria. Bowel and peritoneum: No small bowel obstruction. Overall moderate degree of fecal loading is seen. Long appendix without dilation. Body wall: Possible postsurgical changes Pelvis: Enlarged left ovary. Possible uterine fibroid. Bones: Asymmetric right hip degenerative changes, greater than expected for age. Lumbosacral mild degenerative changes also present. IMPRESSION: Asymmetric enlargement of the left ovary. Correlate with location of symptoms and consider ultrasound to further evaluate. Suspect fibroid uterus is also seen. No small bowel obstruction. Moderate fecal loading. Nondilated appendix. 1.4 cm right adrenal nodule probably an adenoma. This could be confirmed with adrenal protocol imaging. Mild degenerative changes of the lower back. Greater than expected right hip degenerative changes for age. Other findings above. Dictated by: Silviano Nash M.D. on 10/07/2024 at 19:09 Approved by: Silviano Nash M.D. on 10/07/2024 at 19:14
--- NOTE | 2024-10-07 18:23 | DI.RAD.S_ITS ---
PROCEDURE: XR CHEST 2V INDICATIONS: body aches fever 2 weeks TECHNIQUE: 2 views of the chest were acquired. COMPARISON: [facility], CR, XR CHEST 1V, 01/09/2024, 15:50. FINDINGS: Surgical changes and devices: None. Lungs and pleura: Lungs are clear. No pleural effusions or pneumothorax. Mediastinum: Mediastinal contours are normal. Heart size is normal. Bones and chest wall: No suspicious bony abnormalities. Soft tissues appear unremarkable. IMPRESSION: No acute cardiopulmonary abnormality is seen. Dictated by: Darlene Delgadillo M.D. on 10/07/2024 at 19:10 Approved by: Darlene Delgadillo M.D. on 10/07/2024 at 19:10
[2024-10-07] MEDS: SODIUM CHLORIDE 0.9% 1,000 ML 1000 ML IV (19:01)
[2024-10-07] MEDS: KETOROLAC 30 MG/ML VIAL 15 MG IV ×2 (19:05→20:35)
[2024-10-07] MEDS: MORPHINE 4 MG/ML INJ IV (19:06)
[2024-10-07] MEDS: ONDANSETRON 4 MG/2 ML INJ IV (19:06)
[2024-10-07 19:17] VITALS: BP 122/74; PULSE 97; O2SAT 93
[2024-10-07 19:30] VITALS: BP 121/70; PULSE 95; O2SAT 94
[2024-10-07 19:32] LABS: Strep Grp A by PCR Rapid Negative (Negative)
[2024-10-07 20:00] VITALS: BP 119/66; PULSE 92; O2SAT 96
[2024-10-07 20:30] VITALS: BP 115/64; PULSE 92; RESP 16; O2SAT 95
[2024-10-07] MEDS: AMOXICILLIN/CLAV 875/125 MG 1 TAB PO (20:35)
== END 2024-10-07 20:51 | disposition home or self-care (01) ==
PROVIDERS: Emergency Medicine; Emergency Provider Physician Assistant; PCP Family Medicine
DX: M47.816 Spondylosis without myelopathy or radiculopathy, lumbar region (principal); E27.9 Disorder of adrenal gland, unspecified; M54.50 Low back pain, unspecified; R50.9 Fever, unspecified; R51.9 Headache, unspecified; J01.90 Acute sinusitis, unspecified; D25.9 Leiomyoma of uterus, unspecified
CPT/HCPCS: 0241U; 36415; 71046; 74177; 80053; 81003; 81015; 81025; 83690; 85025; 87651; 96361; 96374; 96375; 96376; 99284; 99285; J1885; J2270; J2405; Q9967

== ENCOUNTER → 2024-10-23 06:36 | Outpatient (CLI) | payer OTHER, SELFPAY ==
--- NOTE | 2024-10-23 06:39 | DI.CT.S_ITS ---
PROCEDURE: CT ABDOMEN ADRENAL PROTOCOL INDICATIONS: Mass on R adrenal gland - adenoma(?) TECHNIQUE: Noncontrast 3 mm thick sections acquired from the diaphragms to the iliac crests. After the administration of intravenous contrast, 3 mm thick venous-phase and 15-minute delayed images acquired from the diaphragms to the iliac crests. For radiation dose reduction, the following was used: automated exposure control, adjustment of mA and/or kV according to patient size. COMPARISON: [facility], CT, CT ABDOMEN PELVIS W CON, 10/07/2024, 18:46. FINDINGS: Image quality: Excellent. Lower chest: Unremarkable. ABDOMEN: Adrenal Glands: Normal appearing left adrenal gland. A small nodule at the upper apex of the right adrenal gland anterior and posterior limbs measures only 8 x 12 mm, and shows pre contrast radiodensity of 35.7 Hounsfield units with arterial phase contrast radiodensity 57.1 Hounsfield units, and on delayed imaging 35.7 Hounsfield units. This yields a absolute washout value of 59.0% and a relative washout value of 37.5 %. Both of these values are very near the threshold for establishing benign adrenal adenoma. Liver: No solid mass. Gallbladder: No radiopaque gallstones or wall thickening. Biliary ducts: No biliary dilation. Pancreas: No ductal dilation. Spleen: Size is within normal limits. Kidneys and Ureters: No hydronephrosis. No solid mass. No complex renal cystic lesion which requires follow up. Stomach and Bowel: Normal colonic caliber, without significant wall thickening. Peritoneum: No abnormal intraperitoneal fluid. No free air. Ventral Wall: No hernia. Abdominal Nodes: No retroperitoneal or mesenteric adenopathy by size criteria. Vessels: Aorta and inferior vena cava are normal in size. Bones: No aggressive osseous abnormality. IMPRESSION: The small nodular appearance of the upper apex of the right adrenal gland may represent an adrenal adenoma. The small size renders measurements of enhancement and washout values relatively reduced in accuracy. The washout characteristics are just below the threshold for establishing adrenal adenoma and in the absence of laboratory analysis values that show significant concern for functioning adrenal adenoma a follow-up by MR scanning adrenal adenoma diagnosis technique in 6-12 months could be obtained to confirm stability over time. Dictated by: Theo Delacruz M.D. on 10/23/2024 at 15:24 Approved by: Theo Delacruz M.D. on 10/23/2024 at 15:34
--- NOTE | 2024-10-23 06:39 | DI.US.S_ITS ---
PROCEDURE: US PELVIC COMPLETE INDICATIONS: Enlarged left ovary; history of L ovarian cyst TECHNIQUE: Real-time scanning was performed of the pelvic organs, with image documentation. Additional endovaginal scanning was necessary due to incomplete visualization of the adnexal and endometrial structures by transabdominal scanning. COMPARISON: [facility], US, US PELVIC COMPLETE, 11/20/2021, 14:01. FINDINGS: Uterus: Uterus is anteverted and normal in size at 10.4 x 7.8 x 6.9 cm. The myometrium is homogeneous. The endometrium measures 9 mm combined thickness. There is an anterior midline intramural uterine fibroid measuring 4.2 x 3.0 x 3.7 cm. This previously measured up to 3.3 cm in size. Ovaries: The right ovary is surgically absent. The left ovary measures 6.2 x 3.9 x 4.7 cm, with a calculated ovarian volume of 90 cc. There is a 5.8 x 3.3 x 3.4 cm nonvascular complex cyst in the left ovary. Less than 12 follicles can be seen in each ovary. No suspicious solid adnexal masses are seen. Other: No pathologic free abdominal or pelvic fluid. IMPRESSION: 1. Persistent intramural uterine fibroid which has increased in size now measuring up to 4.2 cm in size versus 3.3 cm previously. 2. A 5.8 x 3.3 x 3.4 cm nonvascular, complex left ovarian cyst. Recommend follow-up pelvic ultrasound in 6-12 weeks to document stability versus resolution. 3. Status post right oophorectomy. We strive to produce accurate, complete, and clear reports of imaging services. To assist us in improving patient care, this report was composed using standard report templates and voice recognition software. Therefore, it may contain abnormal punctuation, insertions and/or omissions. Occasional wrong-word or sound-alike substitutions may occur. Though we review the report and make efforts to correct it, we do recommend that the report be read carefully in proper context to recognize any text inaccuracies. Dictated by: Neal Mitchell M.D. on 10/23/2024 at 12:49 Approved by: Neal Mitchell M.D. on 10/23/2024 at 12:54
[2024-10-23 07:56] LABS: Add Manual Diff / Slide Review NO; Basophils Absolute Auto 100 /uL (0-100); Eosinophils Absolute Auto 100 /uL (0-450); Eosinophils Percent Auto 1.9 % (2-4); Hemoglobin 12.9 g/dL (12.0-16.0); Lymphocytes Absolute Auto 1800 /uL (1100-4500); Lymphocytes Percent Auto 24.3 % (25-40); Mean Corpuscular Hemoglobin 29.7 PG (26-34); Mean Corpuscular Volume 87.2 fL (80-100); Monocytes Absolute Auto 500 /uL (0-900); Neutrophils Absolute Auto 5000 /uL (1500-7000); Neutrophils Percent Auto 65.8 % (50-75); Platelet Count 302 X10^3/uL (150-400); Red Blood Cell Count 4.35 X10^6/uL (4.0-5.2); Red Cell Distribution Width 13.3 % (11.6-14.8); White Blood Cell Count 7.5 X10^3/uL (4.5-11.0)
[2024-10-23 08:09] LABS: INR 1.1 (0.9-1.3); Prothrombin Time 11.9 SECONDS (9.4-12.5)
== END ==
PROVIDERS: Internal Medicine Gastroenterology; PCP Family Medicine; Referring Provider Physician Assistant; Visit Provider Physician Assistant
DX: N83.292 Other ovarian cyst, left side (principal); E27.9 Disorder of adrenal gland, unspecified; D25.1 Intramural leiomyoma of uterus; N83.8 Other noninflammatory disorders of ovary, fallopian tube and broad ligament; R74.8 Abnormal levels of other serum enzymes; Z90.721 Acquired absence of ovaries, unilateral
CPT/HCPCS: 36415; 74170; 76830; 76856; 85025; 85610; Q9967

== ENCOUNTER → 2024-11-13 11:57 | Outpatient (CLI) | payer OTHER, SELFPAY ==
--- NOTE | 2024-11-13 11:57 | DI.US.S_ITS ---
PROCEDURE: US PELVIC COMPLETE INDICATIONS: large ovarian cyst TECHNIQUE: Real-time scanning was performed of the pelvic organs, with image documentation. Additional endovaginal scanning was necessary due to incomplete visualization of the adnexal and endometrial structures by transabdominal scanning. COMPARISON: [facility], US, US PELVIC COMPLETE, 10/23/2024, 6:46. FINDINGS: Uterus: Uterus is anteverted and enlarged in size at 10.3 x 7.1 x 7.7 cm. The myometrium is heterogeneous with fibroid. The endometrium measures 13.0 mm combined thickness. There is a intramural midline anterior uterine body fibroid which measures 4.5 x 4.0 x 4.3 cm. Ovaries: The right ovary is surgically absent. The left ovary measures 4.3 x 4.8 x 3.8 cm, with a calculated ovarian volume of 40.8 cc. The left ovary has a normal sonographic appearance. Less than 12 follicles can be seen in the left ovary. There is a left ovarian simple cyst measuring 2.1 x 2.6 x 2.6 cm. Previously a cyst measured 5.8 x 3.3 x 3.4 cm. No adnexal masses are seen. Other: No pathologic free abdominal or pelvic fluid. IMPRESSION: 1. 4.5 cm maximum diameter intramural uterine fibroid. 2. Significant interval decrease in the size of a left ovarian cyst, now measuring 2.6 cm in maximum diameter. We strive to produce accurate, complete, and clear reports of imaging services. To assist us in improving patient care, this report was composed using standard report templates and voice recognition software. Therefore, it may contain abnormal punctuation, insertions and/or omissions. Occasional wrong-word or sound-alike substitutions may occur. Though we review the report and make efforts to correct it, we do recommend that the report be read carefully in proper context to recognize any text inaccuracies. Dictated by: Adin Sultana M.D. on 11/13/2024 at 22:46 Approved by: Adin Sultana M.D. on 11/13/2024 at 22:49
== END ==
PROVIDERS: PCP Family Medicine; Referring Provider Family Medicine; Visit Provider Family Medicine
DX: N83.8 Other noninflammatory disorders of ovary, fallopian tube and broad ligament (principal); N83.292 Other ovarian cyst, left side; D25.1 Intramural leiomyoma of uterus; Z90.721 Acquired absence of ovaries, unilateral
CPT/HCPCS: 76830; 76856

== ENCOUNTER → 2024-11-20 11:24 | Outpatient (CLI) | payer OTHER, SELFPAY | LOC: LAB 11:24 | PROVIDERS: PCP Family Medicine; Visit Provider Obstetrics & Gynecology | DX: N89.8 Other specified noninflammatory disorders of vagina (principal) | CPT/HCPCS: 87480; 87510; 87660 ==

== ENCOUNTER → 2024-11-25 15:28 | Outpatient (CLI) | payer OTHER, SELFPAY ==
--- NOTE | 2024-11-25 15:29 | DI.RAD.S_ITS ---
PROCEDURE: XR FOOT LT MIN 3V INDICATIONS: dropped heavy glass on mid foot 2 days ago TECHNIQUE: 3 views of the foot were acquired. COMPARISON: None. FINDINGS: Bones: No fractures or dislocations. No suspicious bony lesions. Soft tissues: No tibiotalar joint effusion. Achilles tendon appears normal. IMPRESSION: No acute bony abnormality. Dictated by: Dorian Turner M.D. on 11/25/2024 at 16:59 Approved by: Dorian Turner M.D. on 11/25/2024 at 17:00
== END ==
LOC: DI 15:28
PROVIDERS: PCP Family Medicine; Referring Provider Physician Assistant; Visit Provider Physician Assistant
DX: S99.922A Unspecified injury of left foot, initial encounter (principal); W22.8XXA Striking against or struck by other objects, initial encounter
CPT/HCPCS: 73630

== ENCOUNTER → 2024-12-18 11:14 | Outpatient (CLI) | payer OTHER, SELFPAY ==
[2024-12-19 15:11] LABS: Candida species Negative (Negative); Gardnerella vaginalis Positive (Negative); Trichomoas vaginalis Negative (Negative)
== END ==
PROVIDERS: PCP Family Medicine; Visit Provider Obstetrics & Gynecology
DX: N89.8 Other specified noninflammatory disorders of vagina (principal)
CPT/HCPCS: 87480; 87510; 87660

== ENCOUNTER → 2025-02-02 10:23 | Outpatient (CLI) | payer OTHER, SELFPAY ==
--- NOTE | 2025-02-02 10:25 | DI.RAD.S_ITS ---
PROCEDURE: XR LUMBAR SPINE MIN 4V INDICATIONS: BACK PAIN TECHNIQUE: 5 views of the lumbar spine were acquired, including bilateral oblique views. COMPARISON: [facility], CR, XR HIP W PEL IF DONE BILAT 2V, 12/24/2024, 10:13. [facility], CT, CT ABDOMEN PELVIS W CON, 10/07/2024, 18:46. [facility], CR, XR LUMBAR SPINE 2-3V, 11/05/2018, 16:53. FINDINGS: Bones: 5 nonrib-bearing vertebrae are present. There is normal bony alignment. No vertebral body compression fractures. No suspicious bony lesions. Mild disc space narrowing can be seen at L4-L5 and L5-S1. Moderate bilateral hip degenerative change can be seen, right worse than left. Soft tissues: Overlying bowel gas pattern is normal. No suspicious soft tissue calcifications. Oblique images: No pars defects. IMPRESSION: Mild lower lumbar spine degenerative changes are seen. Premature bilateral hip degenerative change can be seen. - If it would be helpful for clinical management decision making, please consider a dedicated hip MRI for further evaluation (assuming that there is no contraindication). If there is strong clinical concern for a labral abnormality, this should be performed according to the arthrogram protocol. Dictated by: Yoan Beltre M.D. on 02/02/2025 at 9:50 Approved by: Yoan Beltre M.D. on 02/02/2025 at 9:52
== END ==
PROVIDERS: PCP Family Medicine; Referring Provider Orthopaedic Surgery; Visit Provider Orthopaedic Surgery
DX: M47.816 Spondylosis without myelopathy or radiculopathy, lumbar region (principal); M54.9 Dorsalgia, unspecified
CPT/HCPCS: 72110

== ENCOUNTER → 2025-07-06 15:38 | Outpatient (CLI) | payer OTHER, SELFPAY ==
[2025-07-06 17:07] LABS: Bilirubin Urine UA NEGATIVE (NEGATIVE); Color Urine UA YELLOW; Glucose Urine UA NEGATIVE (Negative); Ketones Urine UA TRACE (NEGATIVE); Leukocyte Esterase Urine UA NEGATIVE (NEGATIVE); Nitrite Urine UA NEGATIVE (Negative); Occult Blood Urine UA 2+ (Negative); Protein Urine UA NEGATIVE (Negative); Specific Gravity Urine UA >=1.030 (1.000-1.035); Urobilinogen Urine UA 0.2 E.U./dL (0.2); pH Urine UA 5.5 (4.5-8.0)
[2025-07-06 17:08] LABS: Appearance Urine UA TURBID
[2025-07-06 17:16] LABS: Culture Indicated Urine Cult Not Indicated
== END ==
PROVIDERS: PCP Family Medicine; Visit Provider Obstetrics & Gynecology
DX: R30.0 Dysuria (principal)
CPT/HCPCS: 81001; 87086